=== PATIENT | male | born 1950 | race Caucasian/White ===

== ENCOUNTER → 2024-06-16 | Outpatient (CLI) | payer OTHER, SELFPAY ==
--- NOTE | 2024-06-16 09:30 | XR_ITS ---
Examination: Testicular sonography complete TECHNIQUE: Multiple high resolution grayscale sonographic images testes, assessment arterial inflow venous outflow Doppler spectral analysis carful analysis Exam date and time: June 16, 2024 0940 hours INDICATIONS: Onset scrotal swelling beginning 4 weeks ago FINDINGS: Right testis 4.0 x 2.5 x 3.5 cm Epididymis 25 mm Epididymal cysts, 5 mm, 4 mm Arterial flow testicle. No testicular mass Moderate hydrocele Left testis 4.7 x 2.7 x 3.1 cm Epididymis 12 mm Arterial flow testicle. No testicular mass IMPRESSION: No testicular torsion or testicular mass Suspicious for bilateral epididymitis Moderate right hydrocele
== END | disposition home or self-care (01) ==
PROVIDERS: PCP Family Medicine; Referring Provider Internal Medicine; Visit Provider Internal Medicine
DX: N43.3 Hydrocele, unspecified (principal)
CPT/HCPCS: 76870

== ENCOUNTER → 2024-06-16 | Outpatient (CLI) | payer OTHER, SELFPAY ==
[2024-06-16 16:03] LABS: Collection Type, Urine Clean Catch; Squamous Epithelial Cell,Urine 0 /hpf (0-5)
[2024-06-16 16:52] LABS: Basophils % (Auto) 0 % (0-2.5); Eosinophils # (Auto) 0.2 Thou/mm3 (0.0-0.5); Eosinophils % (Auto) 3 % (0-10); Hematocrit 49.8 % (41.0-53.0); Hemoglobin 16.5 g/dL (13.5-16.0); Immature Granulocytes % (Auto) 0 % (0-0); Immature Granulocytes Auto 0.04 Thou/mm3 (0.00-0.00); Lymphocytes # (Auto) 2.2 Thou/mm3 (1.0-4.8); Lymphocytes % (Auto) 23 % (10-50); Mean Corpuscular HGB Conc 33.1 g/dl (31.0-37.0); Mean Corpuscular Hemoglobin 29.9 pg (25.0-35.0); Mean Corpuscular Volume 90 fL (80-100); Monocytes # (Auto) 0.8 Thou/mm3 (0.0-0.8); Monocytes % (Auto) 8 % (0-12); Neutrophils # (Auto) 6.3 Thou/mm3 (1.8-7.7); Neutrophils % (Auto) 66 % (37-80); Nucleated Red Blood Cell % 0 /100 WBC (0); Platelet Count 279 Thou/mm3 (140-440); Red Blood Count 5.51 Miln/mm3 (4.50-5.90); White Blood Count 9.6 Thou/mm3 (3.8-10.6)
[2024-06-16 16:59] LABS: Bilirubin,Urine Negative (Negative); Blood,Urine Negative (Negative); Clarity,Urine Clear (Clear/Hazy); Color,Urine Colorless (Lt Yel-Yel); Culture Indicated,Urine Not Indicated; Glucose, Urine Negative (Negative); Ketones,Urine Negative (Negative); Leukocyte Esterase,Urine Negative (Negative); Nitrite,Urine Negative (Negative); PH,Urine 6.5 (5.0-7.0); Protein,Urine Negative (Neg - Trace); RBC,Urine 1 /hpf (0-3); Specific Gravity,Urine 1.008 (1.001-1.035); Urobilinogen,Urine Negative mg/dL (0.0-1.0); WBC,Urine < 1 /hpf (0-5)
[2024-06-16 17:09] LABS: Alanine Aminotransferase 18 U/L (10-49); Albumin, Serum 4.4 gm/dL (3.4-4.8); Albumin/Globulin Ratio 1.6 (1.2-2.2); Alkaline Phosphatase 84 U/L (46-116); Anion Gap 7 (7-16); Aspartate Amino Transferase 21 U/L (0-34); BUN/Creatinine Ratio 14 Ratio (12-20); Bilirubin,Total 0.9 mg/dL (0.3-1.2); Blood Urea Nitrogen 19 mg/dL (9-23); Calcium 10.2 mg/dL (8.3-10.6); Calcium (Corrected) 10.2 mg/dL (8.5-10.1); Carbon Dioxide 32.4 mMol/L (20.0-31.0); Chloride 100 mMol/L (98-107); Creatinine (Component) 1.4 mg/dL (0.6-1.3); Globulin 2.7 gm/dL (2.3-3.5); Glucose 81 mg/dL (74-106); Osmolality,Calculated 278 (275-295); Potassium 3.7 mMol/L (3.4-5.1); Sodium 139 mMol/L (136-145); Total Protein 7.1 gm/dL (5.7-8.2); eGFR 54 See Note
== END | disposition home or self-care (01) ==
LOC: COPL 15:23
PROVIDERS: PCP Internal Medicine; Referring Provider Internal Medicine; Visit Provider Internal Medicine
DX: N45.1 Epididymitis (principal)
CPT/HCPCS: 36415; 80053; 81001; 85025

== ENCOUNTER → 2024-08-04 | Outpatient (CLI) | payer OTHER, SELFPAY ==
[2024-08-04 12:13] LABS: Basophils % (Auto) 0 % (0-2.5); Eosinophils # (Auto) 0.3 Thou/mm3 (0.0-0.5); Eosinophils % (Auto) 3 % (0-10); Hematocrit 50.2 % (41.0-53.0); Immature Granulocytes % (Auto) 0 % (0-0); Immature Granulocytes Auto 0.03 Thou/mm3 (0.00-0.00); Lymphocytes # (Auto) 2.4 Thou/mm3 (1.0-4.8); Lymphocytes % (Auto) 25 % (10-50); Mean Corpuscular HGB Conc 33.9 g/dl (31.0-37.0); Mean Corpuscular Hemoglobin 29.8 pg (25.0-35.0); Mean Corpuscular Volume 88 fL (80-100); Monocytes # (Auto) 0.7 Thou/mm3 (0.0-0.8); Monocytes % (Auto) 7 % (0-12); Neutrophils # (Auto) 6.2 Thou/mm3 (1.8-7.7); Neutrophils % (Auto) 64 % (37-80); Nucleated Red Blood Cell % 0 /100 WBC (0); Platelet Count 276 Thou/mm3 (140-440); RDW Standard Deviation 44.6 fL (35.1-43.9); White Blood Count 9.6 Thou/mm3 (3.8-10.6)
[2024-08-04 12:32] LABS: PSA Medicare Annual Scrn 4.89 ng/mL (0-4.00); T4 (Thyroxine) 7.7 mcg/dL (4.5-10.9)
[2024-08-04 12:36] LABS: Alanine Aminotransferase 19 U/L (10-49); Albumin, Serum 4.6 gm/dL (3.4-4.8); Albumin/Globulin Ratio 1.5 (1.2-2.2); Alkaline Phosphatase 88 U/L (46-116); Anion Gap 11 (7-16); Aspartate Amino Transferase 21 U/L (0-34); BUN/Creatinine Ratio 17 Ratio (12-20); Bilirubin,Total 1.1 mg/dL (0.3-1.2); Blood Urea Nitrogen 22 mg/dL (9-23); Calcium 10.1 mg/dL (8.3-10.6); Calcium (Corrected) 10.1 mg/dL (8.5-10.1); Carbon Dioxide 28.5 mMol/L (20.0-31.0); Cardiac Risk Estimate 6.9 RATIO (4.0-6.7); Chloride 101 mMol/L (98-107); Cholesterol 233 mg/dL (132-200); Creatinine (Component) 1.3 mg/dL (0.6-1.3); Glucose 86 mg/dL (74-106); HDL Cholesterol 34 mg/dL (40-60); LDL Cholesterol,Calculated 164 mg/dL (0-130); Osmolality,Calculated 281 (275-295); Potassium 3.9 mMol/L (3.4-5.1); Sodium 140 mMol/L (136-145); Thyroid Stimulating Hormone 2.15 uIU/mL (0.55-4.78); Total Protein 7.6 gm/dL (5.7-8.2); Triglycerides 175 mg/dL (30-150); eGFR 59 See Note
[2024-08-04 12:38] LABS: B-Type Natriuretic Peptide 29 pg/mL (0-100)
[2024-08-04 14:26] LABS: Creatinine MALB Rnd Ur 193 mg/dL (30-125); Microalbumin Creat Ratio 60 mg/gCrea (<30); Microalbumin, Random Urine 116 mg/L (0-300)
[2024-08-10 07:02] LABS: Vitamin D,1,25 (OH)2,Total 17 pg/mL (18-72); Vitamin D2, 1,25 (OH)2 <8 pg/mL; Vitamin D3, 1,25 (OH)2 17 pg/mL
== END | disposition home or self-care (01) ==
PROVIDERS: PCP Nurse Practitioner Family; Referring Provider Nurse Practitioner Family; Visit Provider Nurse Practitioner Family
DX: I10 Essential (primary) hypertension (principal); R53.83 Other fatigue; Z12.5 Encounter for screening for malignant neoplasm of prostate; Z79.899 Other long term (current) drug therapy; R79.9 Abnormal finding of blood chemistry, unspecified
CPT/HCPCS: 36415; 80053; 80061; 82043; 82570; 82652; 83880; 84153; 84436; 84443; 85025; G0103

== ENCOUNTER → 2024-08-09 | Outpatient (CLI) | payer OTHER, SELFPAY ==
[2024-08-13 06:46] LABS: Fecal Globin Result NOT DETECTED (NOT DETECTED)
== END | disposition home or self-care (01) ==
PROVIDERS: PCP Nurse Practitioner Family; Referring Provider Nurse Practitioner Family; Visit Provider Nurse Practitioner Family
DX: Z12.11 Encounter for screening for malignant neoplasm of colon (principal)
CPT/HCPCS: 82274; G0328

== ENCOUNTER → 2024-08-31 | Outpatient (CLI) | payer OTHER, SELFPAY ==
--- NOTE | 2024-08-31 15:00 | XR_ITS ---
Examination: MRI brain without intravenous contrast. Date and time of exam: August 31, 2024 1614 hours INDICATIONS: Diagnosis transient global amnesia, dizziness increasing memory loss and unsteady gait 6 months Technique: Multiple axial and sagittal images of the brain obtained. Siemens high-resolution 1.5 Adilene short bore scanners utilized. Sagittal sections, T1-weighted, TR 500, TE 14, are performed. Axial sections proton-density and T2-weighted have been obtained. Inversion recovery axial images, TR 9, 260, TE 111, TI 2500. Diffusion weighted images, axial sections, TR 4800, TE 128, B value 1000 Axial sections, ADC map, TR 4800, TE 128 Findings: Enlargement of the sella turcica is not present. The optic chiasm and infundibular are not remarkable. Prepontine and interpeduncular cisterns are not enlarged. There is no localized enlargement of the medulla or janis. Fourth ventricle and cerebellar tonsils appear normal in position. No subacute area of hemorrhage density is seen. Mass in the cerebellopontine angle region is not evident. Globes symmetrical. Orbital musculature including medial lateral rectus muscles do not exhibit abnormality. Diffusion-weighted images demonstrate no focus of restricted diffusion. Increased white matter signal prominent Mass effect upon the ventricular system is not identified. Impression: Negative for acute hemorrhage mass effect or midline shift No acute infarct Prominent chronic microvascular white matter change
== END | disposition home or self-care (01) ==
LOC: SMRI 14:54
PROVIDERS: PCP Nurse Practitioner Family; Referring Provider Nurse Practitioner Family; Visit Provider Nurse Practitioner Family
DX: R90.82 White matter disease, unspecified (principal)
CPT/HCPCS: 70551

== ENCOUNTER 2024-11-04 13:54 | Outpatient (AMB) | payer OTHER, SELFPAY ==
[2024-11-04 14:06] VITALS: BP 133/85; PULSE 100; RESP 20; TEMP 36.5; O2SAT 93; BMI 46.0
--- NOTE | 2024-11-04 14:06 | ORTHONT_ITS ---
Vital signs 11/04/24 14:06 Height 1.63 m Height Method Stated Weight 122.243 kg Weight Measurement Method Standing Scale BMI 46.0 BP 133/85 H Blood Pressure Source Automatic Cuff Blood Pressure Location Right Upper Arm Position Sitting Respiration 20 Pulse 100 Pulse Source Monitor Temp 97.7 F Temp Source Temporal Artery Scan Pulse Oximetry (%) 93 L Oxygen Delivery Method Room Air Med/Allergies Allergies & Medications Allergies Penicillins Allergy (Mild, Verified 11/04/24 14:07) RASH ERYTHROMYCIN Allergy (Intermediate, Uncoded 11/04/24 14:07) Swelling around lips/mouth Medication Reconciliation hydrochlorothiazide 25 mg tablet 1 tab PO QDAY ##90 05/26/17 [History Confirmed 11/04/24] omeprazole 40 mg capsule,delayed release 40 mg PO QDAY 02/12/19 [History Confirmed 11/04/24] clotrimazole 1 % topical cream 1 applic topical 01/09/21 [History Confirmed 11/04/24] fluticasone propionate 44 mcg/actuation HFA aerosol inhaler (Flovent HFA) 1 puff inhalation 01/09/21 [History Confirmed 11/04/24] tamsulosin 0.4 mg capsule 0.4 mg PO 01/09/21 [History Confirmed 11/04/24] telmisartan 80 mg tablet 80 mg PO QDAY 01/09/21 [History Confirmed 11/04/24] telmisartan 80 mg tablet mg 01/09/21 [History Confirmed 11/04/24] Exam Exam Patient is in no acute distress and is cooperative with the examination today. Breathing is nonlabored. In no respiratory distress. Bilateral extremities were evaluated and demonstrates sensation intact to light touch. Palpable pedal pulses are present. No significant edema is present. Bilateral hips were examined. The patient has no pain with log roll of the hips. Internal rotation to 30 degrees and external rotation to 30 degrees is painless. Negative FADIR. The left knee was examined. The left knee is in varus alignment. Range of motion from 0-115 degrees. Knee is stable to varus and valgus as well as AP translation with <5mm. Patient has a negative McMurrays. There is no pain with p atellofemoral compression and no crepitus noted. The knee is tender to palpation medially. The right knee was also examined. The right knee is in varus alignment. Range of motion from 0-120 degrees. Knee is stable to varus and valgus as well as AP translation with <5mm. Patient has a negative McMurrays. There is no pain with patellofemoral compression and no crepitus noted. The knee is tender to p alpation medially. X-rays of the left knee demonstrate osteophytes. There is severe joint space narrowing medially. Assessment and Plan Problem List (1) Bilateral knee pain: Status: Acute Plan: Patient is a 73-year-old male with bilateral knee arthritis with significant severity. He Has done well with cortisone injections in the past and would like new injections today Recommend knee cortisone injections as patient would like to proceed with conservative treatment at this time. The risks and benefits of the procedure were reviewed with the patient and patient gave verbal consent to continue with the procedure. Procedure: performed by Dr. Contreras Using sterile technique the Bilateral knees were thoroughly prepped with alcohol, and approximately 1 cc of Kenalog 40 mg/mL and 4 cc of 1% lidocaine was injected into each knee without resistance into the medial tibial femoral joint space. The patient tolerated the procedure. (2) Bilateral primary osteoarthritis of knee: Status: Acute Advanced Care Planning Discussion Advance care planning discussed with:: patient Office Procedures GNS Level of Care Nursing/Assessment Patient Status: Established Patient Nursing Assessment/Reassesment: Medication Reconciliation, Update PMH in EMR and Vital Signs Coordination of Care: Complex Care and Chronic Disease 1-5, Education Complex Pt/Fam, Consent,records obtained, informed consent, Results/Orders obtained and Staff clarify orders Established Patient Charge Established Patient Point Assignment: 95 Established Patient Point Charge: EP Level 3 (80-115) Surgical Proc/IM SQ injection Major Surgical Procedure: Yes (BILATERAL KNEE INJECTIONS ) Medication Given Medication Given Medication Given: Yes Documented Dose Given: 8 Route: Infiitration Medication Given Medication Given Medication Given: Yes Documented Dose Given: 8 Route: Infiitration Office Meds Xylocaine 10 mg/mL (1 %) injection solution Performing Provider: Darren Contreras MD Performing Location: [facility] Administered by: Darren Contreras MD on 11/04/24 15:08 Dose Route Admin Location Dispensed Lot Number Expiration Date [facility] Edi Analyst 40 mL Infiltration 40 mL [id number] [facility] triamcinolone acetonide 40 mg/mL suspension for injection Performing Provider: Darren Contreras MD Performing Location: [facility] Administered by: Darren Contreras MD on 11/04/24 15:08 Dose Route Admin Location Dispensed Lot Number Expiration Date [facility] Edi Analyst 80 mg intra-articular 2 mL [id number] TEV A [facility] Intake Visit Data Collection New Patient or Established: Established Patient (seen at [facility] within 3 years) Reason for Visit:: BILATERAL KNEE INJECTIONS Seen by Clinical Staff ONLY (RN/MA): No Verbal consent obtained for Telemed visit?: No Deliverer Outside Required: No PCP or OBGYN visit in last 3 months: Yes Hx Now: No Do You Feel Safe at Home: Yes Authorities Contacted: N/A Questionairres Past Medical History Past Medical History Have you ever been diagnosed with any of the following: Neurological Problems Seizures: No Cardiology Problems Hypercholesterolemia: Yes Congestive Heart Failure: No Hypertension: Yes Respiratory Problems Chronic Obstructive Pulmonary Disease (COPD): No Asthma: No Sleep Apnea: Yes Stomache/Intestinal Problems Gastroesophageal Reflux Disease: Yes Genital/Urinary Problems Renal Disease: No Kidney Stones: Yes Musculoskeletal Problems Carpal Tunnel Syndrome: Yes Fractures: Yes Head,Eye,Nose,Throat Problems Chronic Ear Infections: Yes Endocrine Problems Diabetes Mellitus Type 1: No Diabetes Mellitus Type 2: No Blood Problems Sickle Cell Disease: No Other Problems Blood Transfusions: No Blood Transfusion Reaction: No Anesthesia Reactions: No Chicken Pox: Yes Measles: Yes Mumps: Yes Subjective Visit Visit for: follow up visit, knee and injections Immunization / Flu Flu Vaccine in the Last 12 Months: No Flu Vaccine Exclusion Criteria: No Exclusion Criteria History of Present Illness Chief complaint: bilateral knee pain Patient is a 72-year-old male with bilateral knee pain worse on the left slightly. This been ongoing for several years. He has not really had any treatment. He has tried Aleve and anti-inflammatories or physical therapy. He reports is very difficult to climb stairs and do ladders. He has done well with the prior injections Pain Pain level (0-10): 3 Pain duration: ALL DAY Pain location: inside (medial), outside (lateral) and anterior Pain quality: dull and aching Pain timing: increases with activity Associated signs & symptoms: none Ambulatory data Ambulatory device: none Treatments Number of previous injections: 2 Improvement with previous injections: Yes Improvement with PT: No Improvement with NSAIDS: no Review of Systems Review of Systems: All systems negative unless otherwise noted in HPI.
== END 2024-11-04 14:17 | disposition home or self-care (01) ==
LOC: HODSRG 13:54
PROVIDERS: PCP Nurse Practitioner Family; Referring Provider Nurse Practitioner Family; Supervising Provider Orthopaedic Surgery Adult Reconstructive Orthopaedic Surgery; Visit Provider Orthopaedic Surgery Adult Reconstructive Orthopaedic Surgery
DX: M25.562 Pain in left knee (principal); M25.561 Pain in right knee; M17.0 Bilateral primary osteoarthritis of knee; I10 Essential (primary) hypertension; E78.00 Pure hypercholesterolemia, unspecified; G47.30 Sleep apnea, unspecified
CPT/HCPCS: 20610; 99213; J3301; J3490; G0463

== ENCOUNTER → 2024-12-30 | Outpatient (BNVA) | payer OTHER, SELFPAY | END | disposition home or self-care (01) | PROVIDERS: PCP Internal Medicine; Referring Provider Internal Medicine; Visit Provider Urology | DX: N40.1 Benign prostatic hyperplasia with lower urinary tract symptoms (principal); N13.8 Other obstructive and reflux uropathy; R35.0 Frequency of micturition; R39.198 Other difficulties with micturition; R97.20 Elevated prostate specific antigen [PSA]; N43.3 Hydrocele, unspecified; E66.9 Obesity, unspecified; Z68.42 Body mass index [BMI] 45.0-49.9, adult; E78.00 Pure hypercholesterolemia, unspecified; K21.9 Gastro-esophageal reflux disease without esophagitis | CPT/HCPCS: 81003; 99203; G0463 ==

== ENCOUNTER 2025-01-26 17:26 | Emergency (ER) | payer OTHER, SELFPAY ==
--- NOTE | 2025-01-26 17:33 | EKG_ITS ---
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1950 Requested By: Noel Tabares (JUNIOR) Order Number: [id number] Reading MD: Noel Tabares (MEETING PLANNER) Measurements Intervals [place] Rate: 74 P: ND: QRS: -28 QRSD: 92 T: 17 QT: 382 QTc: 426 Interpretive Statements ATRIAL FIBRILLATION LOW QRS VOLTAGE IN PRECORDIAL LEADS [QRS DEFLECTION < 1.0 mV IN CHEST LEADS] POSSIBLE ANTERIOR MYOCARDIAL INFARCTION , PROBABLY OLD [30 ms Q WAVE IN V3/V4, OR R < 0.2 mV IN V4] Compared to ECG 11/04/2022 11:12:36 Low QRS voltage now present Ventricular premature complex(es) no longer present Aberrant conduction of supraventricular beat(s) no longer present Myocardial infarct finding still present /store/S0/[id number]/[id number].pdf
[2025-01-26 17:34] VITALS: BP 133/90; PULSE 100; RESP 20; TEMP 36.9; O2SAT 96; BMI 43.2
--- NOTE | 2025-01-26 17:40 | XR_ITS ---
Examination: PA lateral chest 2 views TECHNIQUE: Upright PA lateral chest 2 views Date and time: January 26, 2025 1757 hours Comparison 03/25/2023 INDICATIONS: Chest pain shortness of breath today. FINDINGS: Mild accentuation of basilar bronchovascular markings. No significant cardiac enlargement. Ectatic thoracic aorta. Surgical clips in the right axilla IMPRESSION: Mild bronchitis pattern
--- NOTE | 2025-01-26 17:41 | PD.EDRME ---
Rapid Medical Screening Exam RME Arrival date/time: 01/26/25 17:26 74-year-old male presents to the emergency department today for concerns for shortness of breath and chest pain Chief Complaint: Chest Pain Time Seen by Provider: 01/26/25 17:33 Vital signs: Vital Signs Temperature 98.4 F 01/26/25 17:34 Pulse Rate 100 01/26/25 17:34 Respiratory Rate 20 01/26/25 17:34 Blood Pressure 133/90 H 01/26/25 17:34 Pulse Oximetry (%) 96 01/26/25 17:34 Oxygen Delivery Method Room Air 01/26/25 17:34
[2025-01-26 18:00] LABS: Basophils # (Auto) 0.1 Thou/mm3 (0.0-0.2); Basophils % (Auto) 0 % (0-2.5); Eosinophils # (Auto) 0.3 Thou/mm3 (0.0-0.5); Eosinophils % (Auto) 2 % (0-10); Hematocrit 48.3 % (41.0-53.0); Hemoglobin 16.5 g/dL (13.5-16.0); Immature Granulocytes Auto 0.05 Thou/mm3 (0.00-0.00); Lymphocytes # (Auto) 2.9 Thou/mm3 (1.0-4.8); Lymphocytes % (Auto) 23 % (10-50); Mean Corpuscular HGB Conc 34.2 g/dl (31.0-37.0); Mean Corpuscular Hemoglobin 30.1 pg (25.0-35.0); Mean Corpuscular Volume 88 fL (80-100); Monocytes # (Auto) 0.9 Thou/mm3 (0.0-0.8); Monocytes % (Auto) 7 % (0-12); Neutrophils # (Auto) 8.4 Thou/mm3 (1.8-7.7); Neutrophils % (Auto) 67 % (37-80); Nucleated Red Blood Cell # 0.00 Thou/mm3 (0.00-0.00); Nucleated Red Blood Cell % 0 /100 WBC (0); Platelet Count 229 Thou/mm3 (140-440); RDW Standard Deviation 46.4 fL (35.1-43.9); Red Blood Count 5.48 Miln/mm3 (4.50-5.90); White Blood Count 12.6 Thou/mm3 (3.8-10.6)
[2025-01-26 18:33] LABS: B-Type Natriuretic Peptide < 20 pg/mL (0-100)
[2025-01-26 18:35] LABS: Alanine Aminotransferase 12 U/L (10-49); Albumin, Serum 4.4 gm/dL (3.4-4.8); Albumin/Globulin Ratio 1.6 (1.2-2.2); Alkaline Phosphatase 88 U/L (46-116); Anion Gap 11 (7-16); Aspartate Amino Transferase 17 U/L (0-34); BUN/Creatinine Ratio 13 Ratio (12-20); Bilirubin,Total 0.9 mg/dL (0.3-1.2); Blood Urea Nitrogen 18 mg/dL (9-23); Calcium 10.1 mg/dL (8.3-10.6); Calcium (Corrected) 10.1 mg/dL (8.5-10.1); Carbon Dioxide 26.5 mMol/L (20.0-31.0); Chloride 104 mMol/L (98-107); Creatinine (Component) 1.4 mg/dL (0.6-1.3); Estimated Creatinine Clearance 56.7 mL/min (>60); Globulin 2.8 gm/dL (2.3-3.5); Glucose 83 mg/dL (74-106); Magnesium 1.8 mg/dL (1.6-2.6); Osmolality,Calculated 282 (275-295); Potassium 3.2 mMol/L (3.4-5.1); Sodium 141 mMol/L (136-145); Total Protein 7.2 gm/dL (5.7-8.2); Troponin I 0.021 ng/mL (0.0-0.045); eGFR 53 See Note
[2025-01-26 18:36] LABS: INR 1.0 (0.9-1.3); Partial Thromboplastin Time 29.2 Seconds (22.0-36.0); Prothrombin Time 11.4 Seconds (9.0-12.2)
--- NOTE | 2025-01-26 22:35 | PD.EDCHEST ---
ED Chest Pain RME/HPI General Chief Complaint: Chest Pain Stated Complaint: CHEST PAIN W/ SOB; PRIMARY SENT FOR A-FIB Time Seen by Provider: 01/26/25 17:33 Arrival date/time: 01/26/25 17:26 RME / HPI RME / HPI narrative: 01/26/25 17:26 74-year-old male presents to the emergency department today for concerns for shortness of breath and chest pain -------- This section includes all my notes and documentations, including HPI, PE, and ED course. Carl Abraham MD HPI: 74yo male here with intermittent chest pain x 3 weeks. Reports chest/epigastric pain. Can have multiple episodes per day. Each episode can last few seconds to 30 minutes or more. He has trouble describing the quality and quantity of the pain. Uncertain of exacerbating factors or relieving factors. No other complaints. ROS: All negative except as documented in HPI. Physical Exam: General: Alert and oriented. Noted intermittent attacks of severe pain, holding his chest. Eyes: Conjunctivae and lids clear. ENT: No nasal congestion. Neck: Supple. Heart: RRR. Lungs: No respiratory distress. Good air movement. No rhonchi, wheezing, rales. Abdomen: Soft and epigastric tenderness. Normal bowel sounds. No distension. No rebound or guarding. Back: No CVA tenderness. Skin: Warm and dry. Neuro: Alert and oriented X 3. I reviewed all diagnostic test results. My interpretation of the EKG is atrial fibrillation (74 bpm). My interpretation of the chest x-ray is no acute findings. My review of the gallbladder US report is cholelithiasis. My review of the CT angio chest report is NAD. My review of the CT abdomen pelvis report is NAD. Blood tests remarkable for WBC 12.6, Potassium 3.2. Urine tests unremarkable. At this point, diagnoses include gallstones. Treatment here included Potassium, Protonix, Morphine, Zofran, and Pepcid. Significant improvement noted. Recommended outpatient management. Based on my best medical judgment, made decision no further evaluation or treatment indicated at this time. Patient understands and agrees to the discharge instructions customized and printed, see below. Discharge Instructions from Dr. Abraham: 1. After evaluation, your symptoms are due to gallstone(s). You need gallbladder to help digest fatty foods. 2. So to prevent future attacks, avoid all fatty and oily and greasy and buttery and dairy foods. This usually means take out and fast food restaurants. 3. Zofran for nausea/vomiting. Tylenol with codeine for severe pain. Clear liquid diet for 24 hours then advance diet slowly as tolerated. Augmentin to address your infection. 4. See a private doctor on 01/28/2025 for recheck and further care. Ask to review all test results and official radiology reports, to make sure you receive all necessary follow-ups and monitoring. Ask for help seeing a general surgeon to discuss elective surgery. 5. Seek immediate medical care with intolerable pain, fever, or with any concerns. Carl Abraham MD Related Data Home Medications ?Medication ?Instructions ?Recorded ?Confirmed fluticasone propionate 44 1 puff inhalation 01/09/21 12/30/24 mcg/actuation HFA aerosol inhaler (Flovent HFA) tamsulosin 0.4 mg capsule 0.4 mg PO 01/09/21 12/30/24 Previous Rx's ?Medication ?Instructions ?Recorded acetaminophen 300 mg-codeine 30 mg 2 tab PO Q8H PRN pain #20 tabs 01/27/25 tablet amoxicillin 875 mg-potassium 1 tab PO BID #20 tabs 01/27/25 clavulanate 125 mg tablet ondansetron 4 mg disintegrating 4 mg PO TID PRN nausea and 01/27/25 tablet vomiting 30 days #10 tabs Allergies Allergy/AdvReac Type Severity Reaction Status Date / Time Penicillins Allergy Mild RASH Verified 01/26/25 17:29 ERYTHROMYCIN Allergy Intermediate Swelling Uncoded 01/26/25 17:29 around lips/mouth Review of Systems Review of Systems Systems Reviewed: All systems reviewed, normal except as documented Past Medical History Past Medical History NEUROLOGIC: Negative Seizures CARDIAC: Positive Hypercholesterolemia and Hypertension; Negative Cardiac Disorders or Congestive Heart Failure RESPIRATORY: Positive Sleep Apnea; Negative Chronic Obstructive Pulmonary Disease (COPD) or Asthma GASTROINTESTINAL: Positive Gastrointestinal Disorders and Gastroesophageal Reflux Disease GENITOURINARY: Positive Genitourinary Disorders and Kidney Stones; Negative Renal Disease MUSCULOSKELETAL: Positive Carpal Tunnel Syndrome and Fractures ENT: Positive Ear Infection ENDOCRINE: Negative Diabetes Mellitus Type 1 or Diabetes Mellitus Type 2 HEMATOLOGIC: Negative Sickle Cell Disease OTHER HISTORY: Positive Chicken Pox, Measles and Mumps; Negative Blood Transfusions, Blood Transfusion Reaction or Anesthesia Reactions Family History FAMILY HISTORY: Positive Family Respiratory Disorders, Family Cardiac Disorders and Family Surgery Surgical History SURGICAL: Positive Ear Surgery Social History SMOKING STATUS: Never smoker SUBSTANCE USE: does not use ED Exam Narrative Physical exam: As noted in HPI. Course Course Course Narrative: CXR is ordered for determining the etiology of chest pain. Quality Measures none Orders Category Date Time Status Bedside COVID-19 Antigen Test NOW Care 01/26/25 23:13 Completed Bedside Influenza A&B Antigen Test NOW Care 01/26/25 23:[address] Screening NOW Care 01/26/25 23:16 Completed EKG (ED ONLY) *Do not use* NOW Care 01/26/25 17:33 Completed Saline [Insert IV] NOW Care 01/26/25 23:13 Completed Straight [In and Out Catheter] X1 Care 01/26/25 23:[address] abdomen pelvis w con Stat Exams 01/26/25 23:[address] angio chest Stat Exams 01/26/25 23:16 Taken EKG (ED Only) Stat Exams 01/26/25 17:33 Draft US gall bladder Stat Exams 01/27/25 00:00 Taken XR chest 2V Stat Exams 01/26/25 17:40 Completed Amylase Stat Lab 01/26/25 23:35 Completed B-Type Natriuretic Peptide Stat Lab 01/26/25 17:48 Completed Bilirubin,Direct Stat Lab 01/26/25 23:35 Completed CBC Stat Lab 01/26/25 17:48 Completed Comprehensive Metabolic Panel Stat Lab 01/26/25 17:48 Completed D-Dimer Stat Lab 01/26/25 23:35 Completed Free T4 (Free Thyroxine) Stat Lab 01/26/25 23:35 Completed Magnesium Stat Lab 01/26/25 17:48 Completed Partial Thromboplastin Time Stat Lab 01/26/25 17:48 Completed Prothrombin Time with INR Stat Lab 01/26/25 17:48 Completed TSH [Thyroid Stimulating Hormone] Stat Lab 01/26/25 23:35 Completed Troponin I Stat Lab 01/26/25 17:48 Completed Troponin I Stat Lab 01/26/25 23:35 Completed UA, C/S IF [Urinalysis, C/S if Indicated] Stat Lab 01/26/25 23:19 Completed Famotidine Inj [Pepcid Inj] Med 01/26/25 23:15 Discontinued 20 mg IVP X1 ONE KCL 10% Liq UDC 15 ML Med 01/26/25 22:37 Discontinued 40 meq PO X1 ONE Morphine Inj Med 01/26/25 23:15 Discontinued 4 mg IVP X1 ONE Ondansetron Inj [Zofran Inj] Med 01/26/25 23:15 Discontinued 4 mg IVP X1 ONE Pantoprazole Inj [Protonix Inj] Med 01/26/25 23:15 Discontinued 40 mg IVP X1 ONE Ringers Lactated 1000 ml [Lactated Ringers] 1,000 ml Med 01/26/25 23:15 Discontinued IV 1,000 mls/hr Vital Signs Vital signs: Vital Signs Temperature 98.4 F 01/26/25 17:34 Pulse Rate 100 01/26/25 17:34 Respiratory Rate 20 01/26/25 17:34 Blood Pressure 133/90 H 01/26/25 17:34 Pulse Oximetry (%) 96 01/26/25 17:34 Oxygen Delivery Method Room Air 01/26/25 17:34 Chest Pain MDM Narrative MDM Narrative:: 74yo male here with intermittent chest pain x 3 weeks. Reports chest/epigastric pain. Can have multiple episodes per day. Each episode can last few seconds to 30 minutes or more. He has trouble describing the quality and quantity of the pain. Uncertain of exacerbating factors or relieving factors. No other complaints. Patient data External records reviewed:: [facility] previous records (Per chart review, patient was seen here on 10/15/22 for acute chest wall pain.) Clinical information provided by:: patient Social determinants that could affect healthcare access:: none Patient has the following chronic illnesses:: HTN, HLD How is presenting disease/condition affected by chronic disease/condition?: uneffected by Evaluation data The following diagnostics were reviewed and interpreted by me:: lab results and radiology exam(s) Lab and/or radiology exams considered but not ordered:: none Interpretation Summary: I reviewed all diagnostic test results. My interpretation of the EKG is atrial fibrillation (74 bpm). My interpretation of the chest x-ray is no acute findings. My review of the gallbladder US report is cholelithiasis. My review of the CT angio chest report is NAD. My review of the CT abdomen pelvis report is NAD. Blood tests remarkable for WBC 12.6, Potassium 3.2. Urine tests unremarkable. Medications / Prescriptions Medications or Prescriptions considered but not ordered:: none Medication administrations:: Medication Administration History Discontinued Medications Famotidine (Famotidine Inj 10 Mg/Ml Vial 2 Ml) 20 mg IVP X1 ONE Stop: 01/26/25 23:16 Last Admin: 01/27/25 00:14 Dose: 20 mg Documented By: EE Lactated Ringer's (Lactated Ringers) 1,000 mls @ 1,000 mls/hr IV .Q1H STA Stop: 01/27/25 00:14 Last Infusion: 01/27/25 01:50 Dose: Infused Documented By: Admin: 01/27/25 00:15 Dose: 1,000 mls/hr Documented By: EE Morphine Sulfate (Morphine Sulf Inj 10 Mg/Ml Vial) 4 mg IVP X1 ONE Stop: 01/26/25 23:16 Last Admin: 01/27/25 00:13 Dose: 4 mg Documented By: EE Ondansetron HCl (Ondansetron Inj 2 Mg/Ml Inj 2 Ml) 4 mg IVP X1 ONE; Protocol Stop: 01/26/25 23:16 Last Admin: 01/27/25 00:13 Dose: 4 mg Documented By: EE Pantoprazole Sodium (Pantoprazole Inj 40 Mg Vial) 40 mg IVP X1 ONE Stop: 01/26/25 23:16 Last Admin: 01/27/25 00:14 Dose: 40 mg Documented By: EE Potassium Chloride (Potassium Chloride 10% 20 Meq/15 Ml Udc) 40 meq PO X1 ONE Stop: 01/26/25 22:38 Last Admin: 01/27/25 00:12 Dose: 40 meq Documented By: EE Potassium, Protonix, Morphine, Zofran, Pepcid Consultations Consultation(s) initiated? (list below): No Diagnosis Chest Pain Differential Diagnosis: pneumothorax, stable angina, unstable angina pectoris, atypical chest pain, st elevation myocardial infarction, costochondritis, chest pain and biliary colic Most likely diagnosis given after review of the tests above:: Gallstones Admission Indicated Admission indicated?: not indicated Explain why admission is indicated or not indicated:: With significant improvement and no condition needing emergent intervention, there was no indication for admission. Admission Request Was there a request for admission?: No Disposition Plan Disposition Plan: Discharge Discharge Attestation Discharge Attestation: The patient and all family members were given an opportunity to ask questions and understood the discharge instructions. Discharge instructions specifically effects, indications for sooner follow up or return to the emergency department, and the expected course of current diagnosis. Patient condition: Stable Discharge Plan Plan Patient Disposition: HOME (Self Care) Prescriptions/Referrals Prescriptions/Med Rec: New acetaminophen-codeine 300-30 mg tablet 2 tab PO Q8H MDD 6 PRN (Reason: pain) Qty: 20 0RF ondansetron 4 mg tablet,disintegrating 4 mg PO TID PRN (Reason: nausea and vomiting) 30 Days Qty: 10 0RF amoxicillin-pot clavulanate 875-125 mg tablet 1 tab PO BID Qty: 20 0RF No Action tamsulosin 0.4 mg capsule 0.4 mg PO Flovent HFA 44 mcg/actuation HFA aerosol inhaler 1 puff INHALATION Referrals: Black Kuo MD [Primary Care Provider] - In 1 week Problem List Clinical Impression: Gallstones Patient/Caregiver Discharge Instructions Discharge Activity: activity as tolerated Education Materials: ED Gallstones with Biliary Colic Additional Instructions: Discharge Instructions from Dr. Abraham: 1. After evaluation, your symptoms are due to gallstone(s).? You need gallbladder to help digest fatty foods. 2. So to prevent future attacks, avoid all fatty and oily and greasy and buttery and dairy foods.? This usually means take out and fast food restaurants. 3. Zofran for nausea/vomiting.? Tylenol with codeine for severe pain.? Clear liquid diet for 24 hours then advance diet slowly as tolerated. Augmentin to address your infection. 4. See a private doctor on 01/28/2025 for recheck and further care. Ask to review all test results and official radiology reports, to make sure you receive all necessary follow-ups and monitoring. Ask for help seeing a general surgeon to discuss elective surgery. 5. Seek immediate medical care with intolerable pain, fever, or with any concerns. Print Language: Estonian Stand Alone Forms: [employer] Award Info., Patient Portal Info Letter
--- NOTE | 2025-01-26 23:16 | XR_ITS ---
Examination: CTA chest with intravenous contrast 2-D reconstructions 3-D reconstructions, vascular Date and time of exam: January 27, 2025, 0100 hours Comparison November 04, 2022 INDICATIONS: Chest pain and shortness of breath beginning 4 weeks ago CTDI: vol (mGy) 13.4 DLP: (mGycm) 480 Technique: Multiple axial sections of the thorax have been obtained. 3 mm slice thickness, from below the hemidiaphragms to above the apices of the lungs. Mediastinal and lung density settings have been obtained. 2-D sagittal and coronal reconstructions. 3-D angiographic renderings, 3-D volume renderings, 3D post processing, vascular maximum intensity projections obtained. Contrast administered is 100 cc Isovue 300. Low dose protocols were performed. One or more of the following dose reduction techniques were used; automated exposure control, adjustment of the mA and/or KV according to patient size, use of iterative reconstruction technique. Findings: No thoracic aortic aneurysmal dilatation or dissection Main pulmonary artery segments are not enlarged. No pulmonary artery filling defects No paratracheal tracheobronchial or bronchopulmonary adenopathy 2 mm pulmonary nodule right middle lobe, 3 mm pulmonary nodule right lower lobe Mild vascular congestion. No lobar pneumonia or pulmonary edema No visualized liver and splenic lesions Cholelithiasis IMPRESSION: Negative for pulmonary artery emboli. No pneumonia or pulmonary edema Suggest continued 6 month follow-up CT chest without contrast to document stability of small pulmonary nodules described above Cholelithiasis
--- NOTE | 2025-01-26 23:16 | XR_ITS ---
Examination: CT abdomen with intravenous contrast CT pelvis with intravenous contrast 2-D coronal reconstructions 2-D sagittal reconstructions Date and time of exam:January 27, 2025 0100 hours INDICATIONS: Epigastric tenderness and pain beginning 4 weeks ago. CTDI: vol (mGy) 14.3. DLP: (mGycm) 914. Technique: Multiple axial sections of the abdomen and pelvis have been obtained. 64 slice high-resolution scanner used. 3 mm axial sections have been obtained, post intravenous injection 100 cc Isovue-370. 2-D sagittal, coronal reconstructions obtained. Low dose protocols were performed. One or more of the following dose reduction techniques were used; automated exposure control, adjustment of the mA and/or KV according to patient size, use of iterative reconstruction technique. Findings: No focal liver or splenic lesion Cholelithiasis No pancreatic or adrenal mass Bilateral benign renal cysts Rounded masslike area in the posterior right kidney, lower pole right kidney, axial image 103, coronal image 110, measuring 32 x 31 mm Aorta normal size No bowel obstruction No pericecal inflammatory change Prostatomegaly, AP dimension 5.8 cm Left inguinal hernia containing colon, no incarcerated bowel Impression : Cholelithiasis 32 x 31 mm masslike area in the posterior right kidney, recommend MRI abdomen kidneys follow up to exclude renal tumor No bowel obstruction. Prostatomegaly Left inguinal hernia containing colon but no incarcerated bowel or bowel obstruction
[2025-01-26 23:27] LABS: Collection Type, Urine Clean Catch; Squamous Epithelial Cell,Urine 0 /hpf (0-5)
[2025-01-26 23:47] LABS: Bilirubin,Urine Negative (Negative); Blood,Urine Negative (Negative); Clarity,Urine Clear (Clear/Hazy); Color,Urine Yellow (Lt Yel-Yel); Culture Indicated,Urine Not Indicated; Glucose, Urine Negative (Negative); Ketones,Urine Negative (Negative); Leukocyte Esterase,Urine Negative (Negative); Nitrite,Urine Negative (Negative); PH,Urine 5.5 (5.0-7.0); Protein,Urine Trace (Neg - Trace); RBC,Urine 7 /hpf (0-3); Urobilinogen,Urine Negative mg/dL (0.0-1.0); WBC,Urine 1 /hpf (0-5)
[2025-01-26 23:49] LABS: Specific Gravity,Urine 1.025 (1.001-1.035)
--- NOTE | 2025-01-27 | XR_ITS ---
Examination: Abdomen sonogram, Limited Date and time of exam: January 27, 2025 0019 hours INDICATIONS: Epigastric pain and nausea beginning 3 days ago. Technique: Real-time payan scale transabdominal sonographic images of the upper abdomen obtained. Findings: Gallstones. Gallbladder sludge. Normal gallbladder wall 0.3 cm Normal common bile duct 0.3 cm Pancreatic head 3.7 cm Liver 24.1 cm lobular contour Normal bilateral renal venous flow Patent IVC IMPRESSION: Cholelithiasis, negative for cholecystitis Hepatomegaly, primary hepatocellular disease
[2025-01-27 00:03] LABS: Amylase 97 U/L (30-118); Bilirubin,Direct 0.3 mg/dL (0.0-0.3); Free T4 (Free Thyroxine) 1.25 ng/dL (0.89-1.76); Thyroid Stimulating Hormone 3.28 uIU/mL (0.55-4.78); Troponin I < 0.020 ng/mL (0.0-0.045)
[2025-01-27 00:07] LABS: D-Dimer < 250 ng/mL (<600)
[2025-01-27] MEDS: POTASSIUM CHLORIDE 10% 20 MEQ/15 ML UDC 40 MEQ PO (00:12)
[2025-01-27] MEDS: ONDANSETRON INJ 2 MG/ML INJ 2 ML 4 MG IVP (00:13)
[2025-01-27] MEDS: MORPHINE SULF INJ 10 MG/ML VIAL 4 MG IVP (00:13)
[2025-01-27] MEDS: FAMOTIDINE INJ 10 MG/ML VIAL 2 ML 20 MG IVP (00:14)
[2025-01-27] MEDS: RINGERS LACTATED 1000 ML 1,000 ML IV (00:15)
[2025-01-27 00:21] VITALS: BP 147/93; PULSE 74; RESP 19; TEMP 36.7; O2SAT 90
--- NOTE | 2025-01-27 01:36 | PRELIM_ITS ---
Gallbladder ultrasound. January 27, 2025 at 0019 hours Clinical history: Epigastric tenderness, pain, nausea x3 days. Findings: The liver is enlarged, measuring 24 cm and demonstrates heterogeneous and lobular contour. The main portal vein is patent and demonstrates hepatopetal flow. Echogenic foci are seen in the gallbladder with posterior shadowing, likely representing calculi, the largest measuring 2.2 x 1 x 1.1 cm. Minimal sludge is demonstrated. No gallbladder wall thickening or pericholecystic fluid is identified. The common duct is normal in caliber at 3 mm. The pancreas is unremarkable to the extent visualized. No masses are demonstrated. The inferior vena cava is patent. Impression: Cholelithiasis without evidence of acute cholecystitis or biliary obstruction. Hepatomegaly with heterogeneous and lobular contour of the liver, which may represent fatty infiltration of the liver versus diffuse hepatic parenchymal disease. Recommend clinical correlation. Report Electronically Signed By: Eliazar Espino 01/27/2025 1:35:49 AM [EST]
--- NOTE | 2025-01-27 02:15 | PRELIM_ITS ---
CT scan of the abdomen and pelvis with intravenous contrast (axial sections with sagittal and coronal reformats) January 27, 2025 0100 hours Clinical History: Epigastric tenderness Comparison: November. Findings: Bibasilar dependent atelectasis is present. Small hypodense lesions are noted in the liver, too small to characterize. There is a gallbladder calculus, without gallbladder wall thickening or pericholecystic fluid. The pancreas, spleen and adrenals are unremarkable. Small hypodense lesions are noted in the kidneys, too small to characterize similar to prior study. There are bilateral simple renal cysts, the largest measuring 6 cm in the right kidney and 5 cm in the left kidney similar to prior study. Contrast is seen in the kidneys, ureters and urinary bladder. No evidence of bowel obstruction. There are multiple colonic diverticula without evidence of diverticulitis. The appendix is not visualized. There is no mesenteric or retroperitoneal adenopathy. There is a moderate fat and sigmoid colon containing left inguinoscrotal hernia new since the prior examination. The abdominal aorta demonstrates atheromatous calcification without evidence of aneurysm. A small fat-containing umbilical hernia is present. The urinary bladder is incompletely distended at the time of the examination and appears mildly thick walled. There is mild prostatomegaly. There is no free fluid or free air. Degenerative changes are identified in the spine. Impression: 1. No evidence of bowel obstruction, free air or abscess. 2. Cholelithiasis without CT evidence of acute cholecystitis. 3. Moderate left inguinoscrotal hernia as described. 4. Apparent wall thickening of the urinary bladder and mild prostatomegaly , the possibilities include chronic outlet obstruction versus cystitis. Recommend clinical and laboratory correlation. 5. Other findings as described above. Report Electronically Signed By: Eliazar Espino 01/27/2025 2:15:06 AM [EST]
--- NOTE | 2025-01-27 02:28 | PRELIM_ITS ---
CT angiogram of the chest aorta with intravenous contrast (axial sections with sagittal and coronal reformats) January 27, 2025 0100 hours Clinical History: SOB, chest pain Comparison: No prior study is available for comparison. Findings: The evaluation of the segmental and subsegmental pulmonary artery divisions is limited due to respiratory motion artifact. No pulmonary thromboembolism in the remainder of the pulmonary artery divisions. The thoracic aorta demonstrates atheromatous calcification without evidence of aneurysm. Postoperative changes seen in the mediastinum with surgical clips .The mediastinum demonstrates no evidence of mass or lymphadenopathy. There is mild cardiomegaly. There is no pericardial effusion. Coronary artery calcification is noted. Bibasilar dependent atelectasis is present. No evidence of focal consolidation. There is a 3 mm subpleural nodule in the right lower lobe (axial image 142/218) and 2 mm in the right middle lobe (axial image 127/218). No evidence of pleural effusion or pneumothorax. Degenerative changes are identified in the spine. There are chronic deformities of the right 4th and 5th ribs anterolaterally. Impression: 1. No CT evidence of pulmonary thromboembolism (limited evaluation of the segmental and subsegmental pulmonary artery divisions due to respiratory motion artifact). Recommend additional evaluation, if clinically indicated. 2. No focal consolidation or pleural effusion. 3. Small right lung nodules as described. Recommend follow-up. 4. Other findings as described above. Please refer to CT abdomen and pelvis reported separately. Report Electronically Signed By: Eliazar Espino 01/27/2025 2:26:51 AM [EST]
[2025-01-27 02:51] VITALS: BP 142/91; PULSE 55; RESP 19; TEMP 36.9; O2SAT 94
== END 2025-01-27 02:57 | disposition home or self-care (01) ==
PROVIDERS: Nurse Practitioner Primary Care; Emergency Provider Emergency Medicine; PCP Family Medicine
DX: K80.20 Calculus of gallbladder without cholecystitis without obstruction (principal); I48.91 Unspecified atrial fibrillation; R16.0 Hepatomegaly, not elsewhere classified; R91.8 Other nonspecific abnormal finding of lung field; K40.90 Unilateral inguinal hernia, without obstruction or gangrene, not specified as recurrent
CPT/HCPCS: 36415; 36600; 71046; 71275; 74177; 76705; 80053; 81001; 82150; 82248; 82803; 83735; 83880; 84439; 84443; 84484; 85025; 85379; 85610; 85730; 87400; 87811; 93005; 96361; 96374; 96375; 99284; A4649; J2270; J2405; J2470; J3490; J7120; Q9967; A9270

== ENCOUNTER → 2025-01-31 | Outpatient (CLI) | payer OTHER, SELFPAY ==
[2025-01-31 16:16] LABS: Basophils # (Auto) 0.0 Thou/mm3 (0.0-0.2); Basophils % (Auto) 0 % (0-2.5); Eosinophils # (Auto) 0.4 Thou/mm3 (0.0-0.5); Eosinophils % (Auto) 3 % (0-10); Hematocrit 51.7 % (41.0-53.0); Hemoglobin 17.0 g/dL (13.5-16.0); Immature Granulocytes Auto 0.04 Thou/mm3 (0.00-0.00); Lymphocytes # (Auto) 2.3 Thou/mm3 (1.0-4.8); Lymphocytes % (Auto) 21 % (10-50); Mean Corpuscular HGB Conc 32.9 g/dl (31.0-37.0); Mean Corpuscular Hemoglobin 30.4 pg (25.0-35.0); Mean Corpuscular Volume 93 fL (80-100); Monocytes # (Auto) 0.7 Thou/mm3 (0.0-0.8); Monocytes % (Auto) 6 % (0-12); Neutrophils # (Auto) 7.8 Thou/mm3 (1.8-7.7); Neutrophils % (Auto) 69 % (37-80); Nucleated Red Blood Cell # 0.00 Thou/mm3 (0.00-0.00); Nucleated Red Blood Cell % 0 /100 WBC (0); Platelet Count 261 Thou/mm3 (140-440); RDW Standard Deviation 48.6 fL (35.1-43.9); Red Blood Count 5.59 Miln/mm3 (4.50-5.90); White Blood Count 11.3 Thou/mm3 (3.8-10.6)
[2025-01-31 16:26] LABS: Alanine Aminotransferase 14 U/L (10-49); Albumin, Serum 4.2 gm/dL (3.4-4.8); Albumin/Globulin Ratio 1.3 (1.2-2.2); Alkaline Phosphatase 83 U/L (46-116); Anion Gap 9 (7-16); Aspartate Amino Transferase 15 U/L (0-34); BUN/Creatinine Ratio 12 Ratio (12-20); Bilirubin,Total 0.7 mg/dL (0.3-1.2); Blood Urea Nitrogen 17 mg/dL (9-23); Calcium 9.9 mg/dL (8.3-10.6); Calcium (Corrected) 9.9 mg/dL (8.5-10.1); Carbon Dioxide 30.4 mMol/L (20.0-31.0); Chloride 102 mMol/L (98-107); Creatinine (Component) 1.4 mg/dL (0.6-1.3); Globulin 3.3 gm/dL (2.3-3.5); Glucose 96 mg/dL (74-106); Osmolality,Calculated 282 (275-295); Potassium 3.9 mMol/L (3.4-5.1); Sodium 141 mMol/L (136-145); Total Protein 7.5 gm/dL (5.7-8.2); eGFR 53 See Note
[2025-02-04 19:51] LABS: PSA, Free 1.32 ng/mL; PSA, Total 5.2 ng/mL (< OR = 4.0)
[2025-02-07 06:49] LABS: PSA, % Free 25 % (calc) (>25)
== END | disposition home or self-care (01) ==
LOC: COPL 15:26
PROVIDERS: PCP Family Medicine; Referring Provider Student in an Organized Health Care Education/Training Program; Visit Provider Student in an Organized Health Care Education/Training Program
DX: I48.91 Unspecified atrial fibrillation (principal); R97.20 Elevated prostate specific antigen [PSA]
CPT/HCPCS: 36415; 80053; 84153; 84154; 85025

== ENCOUNTER → 2025-02-02 | Outpatient (CLI) | payer OTHER, SELFPAY ==
--- NOTE | 2025-02-02 14:50 | XR_ITS ---
Examination: Abdomen sonogram, complete Date and time of exam: February 02, 2025 1505 hours INDICATIONS: Right upper abdominal pain beginning 3 months ago, worse the last 3 weeks. Technique: Multiple real-time grayscale transabdominal sonographic images of the abdomen have been obtained. Findings: Multiple gallstones Normal gallbladder wall. Normal common bile duct 0.3 cm Pancreatic head 2.9 cm Aorta not enlarged Liver 18.1 cm lobular contour 9 mm left lobe liver cyst Normal hepatopedal portal venous flow Patent IVC Right kidney 11.7 cm cortex 1.2 cm Multiple calculi, the largest in the upper pole 19 mm 17 mm lower pole cyst Left kidney 12.9 cm renal cortex 1.6 cm Upper pole cyst 47 mm lower pole cyst 24 mm, multiple calculi, the largest in the lower pole 7 mm Borderline splenomegaly IMPRESSION: Cholelithiasis, negative for cholecystitis Suspect primary hepatocellular disease, moderate hepatomegaly is present Bilateral nonobstructing renal calculi
== END | disposition home or self-care (01) ==
LOC: CDIM 14:45
PROVIDERS: PCP Internal Medicine; Referring Provider Student in an Organized Health Care Education/Training Program; Visit Provider Student in an Organized Health Care Education/Training Program
DX: K80.20 Calculus of gallbladder without cholecystitis without obstruction (principal); N20.0 Calculus of kidney
CPT/HCPCS: 76700

== ENCOUNTER 2025-03-08 07:50 | Day surgery (SDC) | payer OTHER, SELFPAY ==
[2025-03-07 10:18] VITALS: BMI 43.2
[2025-03-07 11:54] LABS: Basophils # (Auto) 0.0 Thou/mm3 (0.0-0.2); Basophils % (Auto) 0 % (0-2.5); Eosinophils # (Auto) 0.3 Thou/mm3 (0.0-0.5); Eosinophils % (Auto) 3 % (0-10); Hematocrit 51.4 % (41.0-53.0); Hemoglobin 17.4 g/dL (13.5-16.0); Immature Granulocytes Auto 0.04 Thou/mm3 (0.00-0.00); Lymphocytes # (Auto) 2.2 Thou/mm3 (1.0-4.8); Lymphocytes % (Auto) 20 % (10-50); Mean Corpuscular HGB Conc 33.9 g/dl (31.0-37.0); Mean Corpuscular Hemoglobin 30.7 pg (25.0-35.0); Mean Corpuscular Volume 91 fL (80-100); Monocytes # (Auto) 0.7 Thou/mm3 (0.0-0.8); Monocytes % (Auto) 6 % (0-12); Neutrophils # (Auto) 7.5 Thou/mm3 (1.8-7.7); Neutrophils % (Auto) 70 % (37-80); Nucleated Red Blood Cell # 0.00 Thou/mm3 (0.00-0.00); Nucleated Red Blood Cell % 0 /100 WBC (0); Platelet Count 251 Thou/mm3 (140-440); RDW Standard Deviation 46.2 fL (35.1-43.9); Red Blood Count 5.67 Miln/mm3 (4.50-5.90); White Blood Count 10.7 Thou/mm3 (3.8-10.6)
[2025-03-07 12:06] LABS: INR 1.1 (0.9-1.3); Partial Thromboplastin Time 28.2 Seconds (22.0-36.0); Prothrombin Time 11.5 Seconds (9.0-12.2)
[2025-03-07 12:13] LABS: Alanine Aminotransferase 16 U/L (10-49); Albumin, Serum 4.2 gm/dL (3.4-4.8); Albumin/Globulin Ratio 1.1 (1.2-2.2); Alkaline Phosphatase 89 U/L (46-116); Anion Gap 11 (7-16); Aspartate Amino Transferase 21 U/L (0-34); BUN/Creatinine Ratio 11 Ratio (12-20); Bilirubin,Total 1.1 mg/dL (0.3-1.2); Blood Urea Nitrogen 14 mg/dL (9-23); Calcium 10.0 mg/dL (8.3-10.6); Calcium (Corrected) 10.0 mg/dL (8.5-10.1); Carbon Dioxide 29.2 mMol/L (20.0-31.0); Chloride 101 mMol/L (98-107); Creatinine (Component) 1.3 mg/dL (0.6-1.3); Estimated Creatinine Clearance 61.1 mL/min (>60); Globulin 3.7 gm/dL (2.3-3.5); Glucose 93 mg/dL (74-106); Osmolality,Calculated 281 (275-295); Potassium 3.8 mMol/L (3.4-5.1); Sodium 141 mMol/L (136-145); Total Protein 7.9 gm/dL (5.7-8.2); eGFR 58 See Note
--- NOTE | 2025-03-07 14:45 | SUR.PREOP ---
Cardiac records and history reviewed with Dr Carbone.
[2025-03-08] VITALS (8 sets, daily range): BP systolic 136–157; BP diastolic 77–93; PULSE 57–75; RESP 14–20; TEMP 36.2–36.6; O2SAT 94–98; BMI 43.2
[2025-03-08] MEDS: RINGERS LACTATED 1000 ML 1,000 ML 20 ML IV (08:44)
[2025-03-08] MEDS: ALBUTEROL RT 2.5 MG/3 ML NEBU INH (09:55)
--- NOTE | 2025-03-08 11:32 | SUR.PHASEI ---
pt received from OR in recovery bay 5. pt asleep but responds to voice, breathing unlabored on oxymask 8l. v/s stable. pt dressing to abd x4 cdi. report received from Екатерина Arellano and Dr. Elias.
[2025-03-08] MEDS: fentaNYL CIT INJ 50 mCg/ML AMP 2ML 25 MCG IVP ×4 (11:39→12:01)
--- NOTE | 2025-03-08 11:40 | SUR.PHASEI ---
report given to Melissa OWENS at this time.
--- NOTE | 2025-03-08 11:44 | PD.SUROPNT ---
Date of Procedure 03/08/25 Pre Op Diagnosis Symptomatic cholelithiasis Post Op Diagnosis Same Procedure Laparoscopic cholecystectomy Findings Patient was found to have a noninflamed gallbladder with multiple stones Procedure Description After endotracheal anesthesia was given the patient was placed in supine position and the abdomen was prepped with chloroprep solution and draped in a sterile manner. After time out was performed I injected a few cc of of half percent Marcaine with epinephrine below the umbilicus and I made an incision for about 3 cm in length. The fascia was cleaned and Veress needle was inserted to create a pneumoperitoneum up to 15 mmHg. Then introduced a 12 mm trocar and a 10 mm camera through the fascia and I inspected the intra-abdominal organs as well as the gallbladder and the liver. Another 5 mm trocar was inserted in the epigastric region under direct vision after injecting some local anesthesia. At this time the patient was kept in reverse Trendelenburg position with the left lateral tilt. The third 5 mm trocar was inserted over the mid axillary line under direct vision and a Noah and Madyson grasper was used to hold the fundus of the gallbladder. The retraction was carried out by the medical practice assistant moving the fundus of the gallbladder towards the right shoulder of the patient to create enough traction. I placed a another 5 mm trocar in the midaxillary line just lateral to the rectus muscle under direct vision. I used a fenestrated grasper to retract the neck of the gallbladder laterally towards the patient's right hip. The Calot's triangle was exposed and I achieved the critical view of safety as follows: I dissected out the fatty tissue from the hepatocystic triangle and cleared this area. I also dissected inferior and posterior to the gallbladder to identify the cystic duct and the gallbladder wall. Then superiorly I dissected along the cystic plate up to lower one third third of the gallbladder to lift the gallbladder from the liver. At this time I confirmed that only 2 structures entering the gallbladder were cystic artery and the cystic duct. The common duct was seen distally but no dissection was carried out around the duct. I did not see any need for operative cholangiogram in this patient. The cystic duct was clipped doubly and then divided and cystic artery was similarly dealt with. Then the gallbladder was removed from the liver bed using Harmonic nicci to control the small blood vessels as the dissection proceeded. Then the gallbladder was from the liver bed completely and delivered through the umbilical port using an Endopouch. The liver bed was coagulated with cautery to obtain satisfactory hemostasis. The trocars were pulled out from the abdominal cavity and the fascia at the umbilical incision was closed with interrupted 0 Ethibond. Subcutaneous tissues was closed with 3-0 chromic and injected a few cc of half percent Marcaine with epinephrine and the skin was closed with interrupted 4-0 nylon stitches at all the trocar sites. Dressing was applied with 2 x 2 and Tegaderm. Patient tolerated the procedure well and returned to recovery room in stable condition. Anesthesia GETA Pathology / specimen Other IVF Infused 400 Estimated Blood Loss 20 Surgeon Nikita Spencer MD Surgical Staff Operation Date: 03/08/25 10:15 Case Staff Anesthesiologist: Reyes Rodarte RN First Assistant: Graciela Delcid
--- NOTE | 2025-03-08 12:35 | SUR.PHASEII ---
1235: Pt. AAOx4, vitals stable, breathing unlabored, no complaint of pain or nausea, x4 dressing to ABD CDI, no active bleed noted, pt. tolerated sips of 7up well, pt. ambulated to wheelchair with minimal assist, no complications. Gave discharge instructions to the pt. and his ride, both verbalized understanding and had no further questions. Pt. left with all personal belongings.
== END 2025-03-08 12:35 | disposition home or self-care (01) ==
PROVIDERS: PCP Internal Medicine; Referring Provider Surgery; Visit Provider Surgery
PROC: 0FT44ZZ Resection of Gallbladder, Percutaneous Endoscopic Approach (ICD-10-PCS; CPT 47562; principal; 2025-03-08 10:00)
DX: K80.20 Calculus of gallbladder without cholecystitis without obstruction (principal); G47.30 Sleep apnea, unspecified; E66.01 Morbid (severe) obesity due to excess calories; I48.91 Unspecified atrial fibrillation; Z79.01 Long term (current) use of anticoagulants; I10 Essential (primary) hypertension; R07.9 Chest pain, unspecified; Z68.41 Body mass index [BMI] 40.0-44.9, adult
CPT/HCPCS: 47562; 36415; 80053; 85025; 85610; 85730; A4217; A4649; J0131; J1100; J2250; J2405; J2704; J3010; J3490; J7120; A9270

== ENCOUNTER → 2025-03-31 | Outpatient (BNVA) | payer OTHER, SELFPAY | END | disposition home or self-care (01) | PROVIDERS: PCP Internal Medicine; Referring Provider Internal Medicine; Visit Provider Urology | DX: N40.1 Benign prostatic hyperplasia with lower urinary tract symptoms (principal); R39.12 Poor urinary stream; I10 Essential (primary) hypertension; E78.00 Pure hypercholesterolemia, unspecified; I48.91 Unspecified atrial fibrillation; G47.30 Sleep apnea, unspecified; E66.9 Obesity, unspecified; K21.9 Gastro-esophageal reflux disease without esophagitis | CPT/HCPCS: 51741; 51798 ==

== ENCOUNTER → 2025-04-25 | Outpatient (BNVA) | payer OTHER, SELFPAY | END | disposition home or self-care (01) | PROVIDERS: PCP Internal Medicine; Referring Provider Internal Medicine; Visit Provider Urology | DX: R97.20 Elevated prostate specific antigen [PSA] (principal); I48.91 Unspecified atrial fibrillation; Z79.01 Long term (current) use of anticoagulants; Z98.890 Other specified postprocedural states; E66.9 Obesity, unspecified; Z68.38 Body mass index [BMI] 38.0-38.9, adult; I10 Essential (primary) hypertension | CPT/HCPCS: 81003; 99212; G0463 ==

== ENCOUNTER → 2025-06-03 | Outpatient (BNVA) | payer OTHER, SELFPAY | END | disposition home or self-care (01) | PROVIDERS: PCP Internal Medicine; Referring Provider Internal Medicine; Visit Provider Urology | DX: R97.20 Elevated prostate specific antigen [PSA] (principal); N40.1 Benign prostatic hyperplasia with lower urinary tract symptoms; K40.90 Unilateral inguinal hernia, without obstruction or gangrene, not specified as recurrent; I10 Essential (primary) hypertension; Z87.442 Personal history of urinary calculi | CPT/HCPCS: 99212; G0463 ==

== ENCOUNTER → 2025-06-28 | Outpatient (CLI) | payer OTHER, SELFPAY ==
[2025-06-28 10:28] LABS: Basophils # (Auto) 0.0 Thou/mm3 (0.0-0.2); Basophils % (Auto) 0 % (0-2.5); Eosinophils # (Auto) 0.3 Thou/mm3 (0.0-0.5); Eosinophils % (Auto) 3 % (0-10); Hematocrit 51.8 % (41.0-53.0); Hemoglobin 17.0 g/dL (13.5-16.0); Immature Granulocytes Auto 0.05 Thou/mm3 (0.00-0.00); Lymphocytes # (Auto) 2.2 Thou/mm3 (1.0-4.8); Lymphocytes % (Auto) 23 % (10-50); Mean Corpuscular HGB Conc 32.8 g/dl (31.0-37.0); Mean Corpuscular Hemoglobin 30.0 pg (25.0-35.0); Mean Corpuscular Volume 92 fL (80-100); Monocytes # (Auto) 0.6 Thou/mm3 (0.0-0.8); Monocytes % (Auto) 6 % (0-12); Neutrophils # (Auto) 6.5 Thou/mm3 (1.8-7.7); Neutrophils % (Auto) 67 % (37-80); Nucleated Red Blood Cell # 0.00 Thou/mm3 (0.00-0.00); Nucleated Red Blood Cell % 0 /100 WBC (0); Platelet Count 277 Thou/mm3 (140-440); RDW Standard Deviation 46.8 fL (35.1-43.9); Red Blood Count 5.66 Miln/mm3 (4.50-5.90); White Blood Count 9.7 Thou/mm3 (3.8-10.6)
[2025-06-28 10:48] LABS: Glucose Estimated Average 103 mg/dL (80-131); Hemoglobin A1C 5.2 % Hgb (4.8-6.0)
[2025-06-28 10:50] LABS: PSA Medicare Annual Scrn 4.23 ng/mL (0-4.00)
[2025-06-28 10:54] LABS: Alanine Aminotransferase 21 U/L (10-49); Albumin, Serum 4.6 gm/dL (3.4-4.8); Albumin/Globulin Ratio 1.4 (1.2-2.2); Alkaline Phosphatase 92 U/L (46-116); Anion Gap 9 (7-16); Aspartate Amino Transferase 23 U/L (0-34); BUN/Creatinine Ratio 13 Ratio (12-20); Bilirubin,Total 1.0 mg/dL (0.3-1.2); Blood Urea Nitrogen 17 mg/dL (9-23); Calcium 9.7 mg/dL (8.3-10.6); Calcium (Corrected) 9.7 mg/dL (8.5-10.1); Carbon Dioxide 30.9 mMol/L (20.0-31.0); Cardiac Risk Estimate 6.5 RATIO (4.0-6.7); Chloride 102 mMol/L (98-107); Cholesterol 235 mg/dL (132-200); Creatinine (Component) 1.3 mg/dL (0.6-1.3); Globulin 3.4 gm/dL (2.3-3.5); Glucose 100 mg/dL (74-106); HDL Cholesterol 36 mg/dL (40-60); LDL Cholesterol,Calculated 173 mg/dL (0-130); Osmolality,Calculated 284 (275-295); Potassium 3.9 mMol/L (3.4-5.1); Sodium 142 mMol/L (136-145); Total Protein 8.0 gm/dL (5.7-8.2); Triglycerides 130 mg/dL (30-150); eGFR 58 See Note
== END | disposition home or self-care (01) ==
LOC: COPL 09:41
PROVIDERS: PCP Internal Medicine; Referring Provider Internal Medicine; Visit Provider Internal Medicine
DX: E78.5 Hyperlipidemia, unspecified (principal); I10 Essential (primary) hypertension; F41.1 Generalized anxiety disorder; I48.91 Unspecified atrial fibrillation; J44.9 Chronic obstructive pulmonary disease, unspecified; G47.33 Obstructive sleep apnea (adult) (pediatric)
CPT/HCPCS: 36415; 80053; 80061; 83036; 84153; 85025; G0103

== ENCOUNTER 2025-07-03 09:42 | Emergency (ER) | payer OTHER, SELFPAY ==
--- NOTE | 2025-07-03 09:47 | EKG_ITS ---
[facility] Test Date: 2025-07-03 Pat Name: BERTA MEZA Department: Room: - Gender: Male [employer] Member: : [id number] Requested By: Carl Parker Order Number: [id number] Reading MD: Carl Parker Measurements Intervals [place] Rate: 72 P: ND: QRS: -28 QRSD: 102 T: 12 QT: 386 QTc: 424 Interpretive Statements ATRIAL FIBRILLATION WITH ABERRANT CONDUCTION OR VENTRICULAR PREMATURE COMPLEXES MODERATE VOLTAGE CRITERIA FOR LVH, CONSIDER NORMAL VARIANT [MEETS CRITERIA IN ONE OF: R(aVL), S(V1), R(V5), R(V5/V6)+S(V1)] POSSIBLE ANTERIOR MYOCARDIAL INFARCTION , PROBABLY OLD [30 ms Q WAVE IN V3/V4, OR R < 0.2 mV IN V4] INFERIOR MYOCARDIAL INFARCTION , PROBABLY OLD [40+ ms Q WAVE AND/OR ST/T ABNORMALITY IN II/aVF] Compared to ECG 01/26/2025 17:36:08 Ventricular premature complex(es) now present Aberrant conduction of supraventricular beat(s) now present Myocardial infarct finding still present /store/S0/[id number]/ecg/[id number].pdf
[2025-07-03 09:59] VITALS: BP 158/100; PULSE 72; RESP 20; TEMP 36.8; O2SAT 97; BMI 43.2
--- NOTE | 2025-07-03 10:46 | XR_ITS ---
EXAMINATION: PA chest single view TECHNIQUE: Upright PA chest single view Date and time: July 03, 2025, 10:46 a.m., comparison January 26, 2025 INDICATIONS: Chest pain today. FINDINGS: Mild prominence left ventricle Ectatic enlarged thoracic aorta. Moderate vascular congestion. No lobar pneumonia or pulmonary edema Moderate osteopenia IMPRESSION: Moderate vascular congestion No lobar pneumonia or pulmonary edema
--- NOTE | 2025-07-03 10:50 | PD.EDSOB ---
ED SOB =RME/HPI General Chief Complaint: Chest Pain Stated Complaint: CHEST PAIN, DIFFICULTY BREATHING X 2 DAYS Time Seen by Provider: 07/03/25 10:09 Arrival date/time: 07/03/25 09:42 This is a 74-year-old male that comes into the emergency room with complaints of chest pain and shortness of breath for the last 2 days. Patient has a history of high blood pressure recent cholecystectomy, And hyperlipidemia. Related Data Home Medications ?Medication ?Instructions ?Recorded ?Confirmed apixaban 5 mg tablet (Eliquis) 5 mg PO BID 03/07/25 06/03/25 Held on 03/08/25. Instructions: Resume on 03/11/25. chlorthalidone 25 mg tablet 25 mg PO DAILY 03/07/25 06/03/25 clonidine HCl 0.1 mg tablet 0.1 mg PO Q6H PRN hypertensive 03/07/25 06/03/25 emergency felodipine 10 mg tablet,extended 10 mg PO DAILY 03/07/25 06/03/25 release 24 hr omeprazole 40 mg capsule,delayed 40 mg PO QDAY 03/07/25 06/03/25 release tamsulosin 0.4 mg capsule (Flomax) 0.4 mg PO QDAY 03/07/25 06/03/25 telmisartan 80 mg tablet 80 mg PO DAILY 03/07/25 06/03/25 carvedilol 6.25 mg tablet 6.25 mg PO BID 04/25/25 06/03/25 Allergies Allergy/AdvReac Type Severity Reaction Status Date / Time Penicillins Allergy Mild RASH Verified 07/05/25 05:35 ERYTHROMYCIN Allergy Intermediate Swelling Uncoded 07/05/25 05:35 around lips/mouth Review of Systems Review of Systems Systems Reviewed: All systems reviewed, normal except as documented Past Medical History Past Medical History NEUROLOGIC: Negative Seizures CARDIAC: Positive Hypercholesterolemia and Hypertension; Negative Cardiac Disorders or Congestive Heart Failure RESPIRATORY: Positive Sleep Apnea; Negative Chronic Obstructive Pulmonary Disease (COPD) or Asthma GASTROINTESTINAL: Positive Gastrointestinal Disorders and Gastroesophageal Reflux Disease GENITOURINARY: Positive Genitourinary Disorders and Kidney Stones; Negative Renal Disease MUSCULOSKELETAL: Positive Carpal Tunnel Syndrome and Fractures ENT: Positive Ear Infection ENDOCRINE: Negative Diabetes Mellitus Type 1 or Diabetes Mellitus Type 2 HEMATOLOGIC: Negative Sickle Cell Disease OTHER HISTORY: Positive Chicken Pox, Measles and Mumps; Negative Blood Transfusions, Blood Transfusion Reaction or Anesthesia Reactions Family History FAMILY HISTORY: Positive Family Respiratory Disorders, Family Cardiac Disorders and Family Surgery Surgical History SURGICAL: Positive Ear Surgery Social History SMOKING STATUS: Never smoker SUBSTANCE USE: does not use ED Exam Narrative Physical exam: VITAL SIGNS: Reviewed. GENERAL APPEARANCE: Alert and interactive, follows commands, no acute distress, HEAD AND FACE: Non-traumatic. ENT: PERRL, conjuctiva pink and clear, eyelid no trauma, Mucous membrane moist. NECK: Supple, nontender, no nuchal rigidity. CHEST: No tenderness, no crepitus, no paradoxical movement, no retractions. LUNGS: Clear, well ventilated, symmetric, no rales, no wheezing, no rhonchi, no stridor, good breath sounds bilaterally. HEART: Regular rate, regular rhythm, no murmur, no gallops. ABDOMEN: Soft, nondistended, no guarding, nontender NEUROLOGICAL: Gross motor function intact sensory function intact, Appropriate for age. MUSCULOSKELETAL: low back nontender, full range of motion. EXTREMITIES: No redness no swelling no skin breakdown on bilateral foot and leg. Distal neurovascular status intact bilateral foot SKIN: Color pink, dry, no rash, no lacerations, no abrasions, no contusions. Course Quality Measures none Orders Category Date Time Status EKG (ED ONLY) *Do not use* NOW Care 07/03/25 09:47 Completed EKG (ED Only) Stat Exams 07/03/25 09:47 Draft XR chest 1V Stat Exams 07/03/25 10:46 Completed BNP [B-Type Natriuretic Peptide] Stat Lab 07/03/25 11:24 Completed CBC Stat Lab 07/03/25 11:24 Completed Comprehensive Metabolic Panel Stat Lab 07/03/25 11:24 Completed Lipase Stat Lab 07/03/25 11:24 Completed Troponin I Stat Lab 07/03/25 11:24 Completed Urinalysis Stat Lab 07/03/25 11:01 Completed Vital Signs Vital signs: Vital Signs Temperature 98.3 F 07/03/25 09:59 Pulse Rate 72 07/03/25 09:59 Respiratory Rate 20 07/03/25 09:59 Blood Pressure 158/100 H 07/03/25 09:59 Pulse Oximetry (%) 97 07/03/25 09:59 Oxygen Delivery Method Room Air 07/03/25 09:59 PROCEDURES: EKG Interpretation #1: Date of EK07/03/25 Time of EK:55 Rate: 72 Interpretation: Interpreted by me (Reading on EKG says atrial fibrillation but EKG appears to be sinus rhythm.) EKG Impression: Normal QRS and Normal intervals Shortness of Breath / Dyspnea MDM Narrative MDM Narrative:: Labs reviewed patient has a white count of 9.5 hemoglobin of 16.6 with a hematocrit of 50.4 platelet count 253 metabolic panel unremarkable for the most part AST and ALT within normal limits alk phos within normal limits BNP is 30 lipase is slightly elevated at 69. Urinalysis unremarkable. Troponin was negative. I spoke to patient at length. According to she thinks that patient used to be on diuretics however he does not remember being on diuretics. Patient states that he has a good relationship with Dr. Reynolds and he will make an appointment with him. Patient states he will call the office tomorrow to make an appointment with him as soon as possible. I offered to give patient a diuretic while he was in the emergency room but patient does not want a diuretic. I even told patient that it would be a good idea just to repeat the troponin in 4 hours and patient did not want to wait. Patient states that he feels like it could have just been gas pain because now his pain is completely resolved. Patient states that he thinks he might of put 2 scoops of coffee instant mix into his coffee and thinks that made him have the chest pain. Patient thinks that he was having more less gas pain versus chest pain. Patient's at bedside with patient and they state they want to go home. They do not want any more lab work. I did explain to patient that his lipase is slightly elevated at 69. I told him to make sure he gets this checked out with his primary doctor. LFTs otherwise unremarkable. I discussed case with and let him know that I was discharging patient home. chest x ray: FINDINGS: Mild prominence left ventricle Ectatic enlarged thoracic aorta. Moderate vascular congestion. No lobar pneumonia or pulmonary edema Moderate osteopenia IMPRESSION: Moderate vascular congestion No lobar pneumonia or pulmonary edema Patient data External records reviewed:: [facility] previous records Clinical information provided by:: patient Social determinants that could affect healthcare access:: none Patient has the following chronic illnesses:: see note How is presenting disease/condition affected by chronic disease/condition?: no chronic disease Evaluation data The following diagnostics were reviewed and interpreted by me:: lab results, radiology exam(s) and EKG tracing(s) Lab and/or radiology exams considered but not ordered:: repeat troponn Interpretation Summary: see note Medications / Prescriptions Medications or Prescriptions considered but not ordered:: none Medication administrations:: see note Consultations Consultation(s) initiated? (list below): No Diagnosis Shortness of Breath Differential Diagnosis: acute exacerbation of chronic obstructive airways disease, congestive heart failure and community acquired pneumonia Most likely diagnosis given after review of the tests above:: see note Admission Indicated Admission indicated?: not indicated Admission Request Was there a request for admission?: No Disposition Plan Disposition Plan: Discharge Discharge Attestation Discharge Attestation: The patient and all family members were given an opportunity to ask questions and understood the discharge instructions. Discharge instructions specifically effects, indications for sooner follow up or return to the emergency department, and the expected course of current diagnosis. Patient condition: Stable Discharge Plan Plan Patient Disposition: HOME (Self Care) Patient condition on transfer: Stable Prescriptions/Referrals Prescriptions/Med Rec: No Action carvedilol 6.25 mg tablet 6.25 mg PO BID Rx Instructions: must administer with a meal/food clonidine HCl 0.1 mg tablet 0.1 mg PO Q6H PRN (Reason: hypertensive emergency) Rx Instructions: B/P > 180/100 chlorthalidone 25 mg tablet 25 mg PO DAILY telmisartan 80 mg tablet 80 mg PO DAILY omeprazole 40 mg capsule,delayed release(DR/EC) 40 mg PO QDAY felodipine 10 mg tablet extended release 24 hr 10 mg PO DAILY tamsulosin [Flomax] 0.4 mg capsule 0.4 mg PO QDAY Eliquis 5 mg tablet 5 mg PO BID Referrals: Driss Guillaume [Primary Care Provider] - In 1 week Problem List Clinical Impression: Chest pain, Elevated lipase Patient/Caregiver Discharge Instructions Discharge Activity: activity as tolerated Education Materials: ED Chest Pain, Uncertain Cause Additional Instructions: Please call and make an appointment with Dr. Reynolds rn progressive care unit. come back to the emergency room if symptoms change or worsen. Follow-up with primary provider in 1 to 2 days. Print Language: Sami Stand Alone Forms: [employer] Award Info., Patient Portal Info Letter PA/GAMES DEALER Supervising Physician PA/GAMES DEALER Supervising Physician: enid
[2025-07-03 11:21] LABS: Collection Type, Urine Voided; RBC,Urine 0 /hpf (0-3); Squamous Epithelial Cell,Urine 0 /hpf (0-5)
[2025-07-03 11:37] LABS: Bilirubin,Urine Negative (Negative); Blood,Urine Negative (Negative); Clarity,Urine Clear (Clear/Hazy); Color,Urine Lt-Yellow (Lt Yel-Yel); Glucose, Urine Negative (Negative); Ketones,Urine Negative (Negative); Leukocyte Esterase,Urine Negative (Negative); Nitrite,Urine Negative (Negative); PH,Urine 6.5 (5.0-7.0); Protein,Urine Negative (Neg - Trace); Specific Gravity,Urine 1.009 (1.001-1.035); Urobilinogen,Urine Negative mg/dL (0.0-1.0); WBC,Urine < 1 /hpf (0-5)
[2025-07-03 11:49] LABS: Basophils # (Auto) 0.0 Thou/mm3 (0.0-0.2); Basophils % (Auto) 0 % (0-2.5); Eosinophils # (Auto) 0.1 Thou/mm3 (0.0-0.5); Eosinophils % (Auto) 1 % (0-10); Hematocrit 50.4 % (41.0-53.0); Hemoglobin 16.6 g/dL (13.5-16.0); Immature Granulocytes Auto 0.03 Thou/mm3 (0.00-0.00); Lymphocytes # (Auto) 1.8 Thou/mm3 (1.0-4.8); Lymphocytes % (Auto) 20 % (10-50); Mean Corpuscular HGB Conc 32.9 g/dl (31.0-37.0); Mean Corpuscular Hemoglobin 30.0 pg (25.0-35.0); Mean Corpuscular Volume 91 fL (80-100); Monocytes # (Auto) 0.5 Thou/mm3 (0.0-0.8); Monocytes % (Auto) 6 % (0-12); Neutrophils # (Auto) 6.9 Thou/mm3 (1.8-7.7); Neutrophils % (Auto) 73 % (37-80); Nucleated Red Blood Cell # 0.00 Thou/mm3 (0.00-0.00); Nucleated Red Blood Cell % 0 /100 WBC (0); Platelet Count 253 Thou/mm3 (140-440); RDW Standard Deviation 45.8 fL (35.1-43.9); Red Blood Count 5.54 Miln/mm3 (4.50-5.90); White Blood Count 9.5 Thou/mm3 (3.8-10.6)
[2025-07-03 12:06] LABS: B-Type Natriuretic Peptide 30 pg/mL (0-100)
[2025-07-03 12:07] LABS: Alanine Aminotransferase 21 U/L (10-49); Albumin, Serum 4.2 gm/dL (3.4-4.8); Albumin/Globulin Ratio 1.1 (1.2-2.2); Alkaline Phosphatase 90 U/L (46-116); Anion Gap 10 (7-16); Aspartate Amino Transferase 22 U/L (0-34); BUN/Creatinine Ratio 12 Ratio (12-20); Bilirubin,Total 1.1 mg/dL (0.3-1.2); Blood Urea Nitrogen 14 mg/dL (9-23); Calcium 9.9 mg/dL (8.3-10.6); Calcium (Corrected) 9.9 mg/dL (8.5-10.1); Carbon Dioxide 28.0 mMol/L (20.0-31.0); Chloride 103 mMol/L (98-107); Creatinine (Component) 1.2 mg/dL (0.6-1.3); Estimated Creatinine Clearance 66.2 mL/min (>60); Globulin 3.7 gm/dL (2.3-3.5); Glucose 91 mg/dL (74-106); Lipase 69 U/L (12-53); Osmolality,Calculated 281 (275-295); Potassium 4.0 mMol/L (3.4-5.1); Sodium 141 mMol/L (136-145); Total Protein 7.9 gm/dL (5.7-8.2); eGFR > 60 See Note
[2025-07-03 14:10] LABS: Troponin I < 0.020 ng/mL (0.0-0.045)
== END 2025-07-03 15:36 | disposition home or self-care (01) ==
PROVIDERS: Nurse Practitioner Family; Emergency Provider Emergency Medicine; PCP Internal Medicine
DX: R74.8 Abnormal levels of other serum enzymes (principal); R07.9 Chest pain, unspecified; R09.89 Other specified symptoms and signs involving the circulatory and respiratory systems; I48.91 Unspecified atrial fibrillation; I49.3 Ventricular premature depolarization; I10 Essential (primary) hypertension; E78.00 Pure hypercholesterolemia, unspecified
CPT/HCPCS: 36415; 71045; 80053; 81001; 83690; 83880; 84484; 85025; 93005; 99283

== ENCOUNTER 2025-07-05 05:34 | Emergency (ER) | payer OTHER, SELFPAY ==
[2025-07-05] VITALS (9 sets, daily range): BP systolic 132–149; BP diastolic 79–97; PULSE 52–62; RESP 12–89; TEMP 36.4–36.6; O2SAT 94–96; BMI 43.2
--- NOTE | 2025-07-05 05:57 | XR_ITS ---
EXAMINATION: PA chest single view TECHNIQUE: Upright PA chest single view Date and time: July 05, 2025, 0603 hours, comparison July 03, 2025 INDICATIONS: Chest pain shortness of breath beginning this morning FINDINGS: Normal heart size Ectatic thoracic aorta. Subtle opacity at both lung bases consistent with early pneumonia No reed pulmonary edema Mild osteopenia Right axillary surgical clips IMPRESSION:: Early bibasilar pneumonia
--- NOTE | 2025-07-05 05:58 | PD.EDRME ---
Rapid Medical Screening Exam E Arrival date/time: 07/05/25 05:34 This is a case of 75-year-old male who came in in the emergency room due to chest pain and shortness of breath since midnight worsening of the symptoms this patient decided to sought consult here in the emergency room Chief Complaint: Chest Pain Vital signs: Vital Signs Temperature 97.6 F 07/05/25 05:45 Pulse Rate 56 L 07/05/25 05:45 Respiratory Rate 19 07/05/25 05:45 Blood Pressure 139/79 H 07/05/25 05:45 Pulse Oximetry (%) 96 07/05/25 05:45 Oxygen Delivery Method Room Air 07/05/25 05:45 Exam: Clear breath sound normal rate regular rhythm no murmur Clinical Impression: Chest pain
[2025-07-05 06:36] LABS: Basophils # (Auto) 0.1 Thou/mm3 (0.0-0.2); Basophils % (Auto) 1 % (0-2.5); Eosinophils # (Auto) 0.2 Thou/mm3 (0.0-0.5); Eosinophils % (Auto) 2 % (0-10); Hematocrit 48.9 % (41.0-53.0); Hemoglobin 16.1 g/dL (13.5-16.0); Immature Granulocytes Auto 0.03 Thou/mm3 (0.00-0.00); Lymphocytes # (Auto) 2.0 Thou/mm3 (1.0-4.8); Lymphocytes % (Auto) 19 % (10-50); Mean Corpuscular HGB Conc 32.9 g/dl (31.0-37.0); Mean Corpuscular Hemoglobin 30.1 pg (25.0-35.0); Mean Corpuscular Volume 91 fL (80-100); Monocytes # (Auto) 0.5 Thou/mm3 (0.0-0.8); Monocytes % (Auto) 5 % (0-12); Neutrophils # (Auto) 7.5 Thou/mm3 (1.8-7.7); Neutrophils % (Auto) 73 % (37-80); Nucleated Red Blood Cell # 0.00 Thou/mm3 (0.00-0.00); Nucleated Red Blood Cell % 0 /100 WBC (0); Platelet Count 206 Thou/mm3 (140-440); RDW Standard Deviation 46.1 fL (35.1-43.9); Red Blood Count 5.35 Miln/mm3 (4.50-5.90); White Blood Count 10.4 Thou/mm3 (3.8-10.6)
[2025-07-05 06:57] LABS: B-Type Natriuretic Peptide 25 pg/mL (0-100)
[2025-07-05 07:01] LABS: Alanine Aminotransferase 18 U/L (10-49); Albumin, Serum 4.4 gm/dL (3.4-4.8); Albumin/Globulin Ratio 1.3 (1.2-2.2); Alkaline Phosphatase 85 U/L (46-116); Anion Gap 13 (7-16); Aspartate Amino Transferase 21 U/L (0-34); BUN/Creatinine Ratio 12 Ratio (12-20); Bilirubin,Total 0.6 mg/dL (0.3-1.2); Blood Urea Nitrogen 14 mg/dL (9-23); Calcium 9.1 mg/dL (8.3-10.6); Calcium (Corrected) 9.1 mg/dL (8.5-10.1); Carbon Dioxide 26.3 mMol/L (20.0-31.0); Chloride 103 mMol/L (98-107); Creatinine (Component) 1.2 mg/dL (0.6-1.3); Estimated Creatinine Clearance 66.2 mL/min (>60); Globulin 3.3 gm/dL (2.3-3.5); Glucose 118 mg/dL (74-106); Osmolality,Calculated 284 (275-295); Potassium 3.5 mMol/L (3.4-5.1); Sodium 142 mMol/L (136-145); Total Protein 7.7 gm/dL (5.7-8.2); Troponin I < 0.020 ng/mL (0.0-0.045); eGFR > 60 See Note
[2025-07-05] MEDS: FUROSEMIDE INJ 10 MG/ML 4ML VIAL 40 MG IVP (07:54)
[2025-07-05] MEDS: ALBUTEROL RT 2.5 MG/3 ML NEBU INH (08:11)
[2025-07-05 10:00] LABS: Collection Type, Urine Voided; RBC,Urine 0 /hpf (0-3); Squamous Epithelial Cell,Urine 0 /hpf (0-5); WBC,Urine 0 /hpf (0-5)
[2025-07-05 10:07] LABS: Bilirubin,Urine Negative (Negative); Blood,Urine Negative (Negative); Clarity,Urine Clear (Clear/Hazy); Color,Urine Colorless (Lt Yel-Yel); Glucose, Urine Negative (Negative); Ketones,Urine Negative (Negative); Leukocyte Esterase,Urine Negative (Negative); Nitrite,Urine Negative (Negative); PH,Urine 6.5 (5.0-7.0); Protein,Urine Negative (Neg - Trace); Specific Gravity,Urine 1.008 (1.001-1.035); Urobilinogen,Urine Negative mg/dL (0.0-1.0)
--- NOTE | 2025-07-05 10:57 | PD.EDCHEST ---
ED Chest Pain RME/HPI General Chief Complaint: Chest Pain Stated Complaint: CHEST PAIN AND SOB Time Seen by Provider: 07/05/25 06:48 Arrival date/time: 07/05/25 05:34 Limitations: no limitations RME / HPI RME / HPI narrative: 07/05/25 05:34 This is a case of 75-year-old male who came in in the emergency room due to chest pain and shortness of breath since midnight worsening of the symptoms this patient decided to sought consult here in the emergency room DR. LANDA MAIN ED EVALUATION: 74 year old male with history of atrial fibrillation on Eliquis, hypertension, hyperlipidemia presents to the ED for evaluation of shortness of breath beginning yesterday and worsening last night. Described feeling he is not getting enough air that was not improved with use of CPAP or administering a breathing treatment last night. Accompanied by a dull aching chest pain, located across his chest, rating as moderate in severity. Denies fevers, chills, sweats, cough, abdominal pain, n/v, or other associated symptoms. Exam: Clear breath sound normal rate regular rhythm no murmur Impression: Chest pain Related Data Home Medications ?Medication ?Instructions ?Recorded ?Confirmed apixaban 5 mg tablet (Eliquis) 5 mg PO BID 03/07/25 06/03/25 Held on 03/08/25. Instructions: Resume on 03/11/25. chlorthalidone 25 mg tablet 25 mg PO DAILY 03/07/25 06/03/25 clonidine HCl 0.1 mg tablet 0.1 mg PO Q6H PRN hypertensive 03/07/25 06/03/25 emergency felodipine 10 mg tablet,extended 10 mg PO DAILY 03/07/25 06/03/25 release 24 hr omeprazole 40 mg capsule,delayed 40 mg PO QDAY 03/07/25 06/03/25 release tamsulosin 0.4 mg capsule (Flomax) 0.4 mg PO QDAY 03/07/25 06/03/25 telmisartan 80 mg tablet 80 mg PO DAILY 03/07/25 06/03/25 carvedilol 6.25 mg tablet 6.25 mg PO BID 04/25/25 06/03/25 Previous Rx's ?Medication ?Instructions ?Recorded levofloxacin 500 mg tablet 500 mg PO Q24H 10 days #10 tabs 07/05/25 Allergies Allergy/AdvReac Type Severity Reaction Status Date / Time Penicillins Allergy Mild RASH Verified 07/05/25 05:35 ERYTHROMYCIN Allergy Intermediate Swelling Uncoded 07/05/25 05:35 around lips/mouth Review of Systems Review of Systems Systems Reviewed: All systems reviewed, normal except as documented Past Medical History Past Medical History CARDIAC: Positive Atrial Fibrillation, Hypercholesterolemia and Hypertension RESPIRATORY: Positive Sleep Apnea GASTROINTESTINAL: Positive Gastrointestinal Disorders, Gall Bladder Disease, Gastroesophageal Reflux Disease and Obesity GENITOURINARY: Positive Genitourinary Disorders, Kidney Stones and Benign Prostatic Hyperplasia MUSCULOSKELETAL: Positive Carpal Tunnel Syndrome and Fractures ENT: Positive Ear Infection OTHER HISTORY: Positive Hospitalization (surgery), Chicken Pox, Measles and Mumps Family History FAMILY HISTORY: Positive Family Respiratory Disorders, Family Cardiac Disorders and Family Surgery Surgical History SURGICAL: Positive Cardiac Surgery (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, thoracotomy right), Ear Surgery and Abdominal Surgery Social History SMOKING STATUS: Never smoker SUBSTANCE USE: does not use ED Exam General Limitations: Present no limitations General appearance: Present alert and in no apparent distress Head Head exam: Present atraumatic, normocephalic and normal inspection Eye Eye exam: Present normal appearance, PERRL and EOMI ENT ENT exam: Present normal exam, normal oropharynx and mucous membranes moist Neck Neck exam: Present normal inspection, full ROM and trachea midline Chest Chest inspection: Present normal inspection and symmetric chest wall rise Respiratory Respiratory exam: Present normal lung sounds bilaterally and other (Dimished breath sounds in both bases ) Cardiovascular Cardiovascular exam: Present regular rate, normal rhythm and normal heart sounds Abdominal Exam Abdominal exam: Present soft and normal bowel sounds Extremities Exam Extremities exam: Present normal inspection, full ROM and other (1+ pretibial edema to bilateral lower extremities ) Back Exam Back exam: Present normal inspection and full ROM Neurological Exam Neurological exam: Present alert, oriented X3 and CN II-XII intact Psychiatric Psychiatric exam: Present normal affect and normal mood Skin Skin exam: Present warm, dry, intact and normal color Course Course Course Narrative: chest xray ordered to help determine etiology of chest pain and shortness of breath. Quality Measures none Orders Category Date Time Status Talent Acquisition Project Manager NOW Care 07/05/25 06:50 Completed Continuous Pulse Oximetry NOW Care 07/05/25 06:50 Completed EKG (ED ONLY) *Do not use* NOW Care 07/05/25 05:38 Completed EKG (ED ONLY) *Do not use* NOW Care 07/05/25 05:57 Completed Insert IV NOW Care 07/05/25 06:50 Completed EKG (ED Only) Stat Exams 07/05/25 05:38 Ordered EKG (ED Only) Stat Exams 07/05/25 05:57 Ordered XR chest 1V Stat Exams 07/05/25 05:57 Completed BNP [B-Type Natriuretic Peptide] Stat Lab 07/05/25 06:16 Completed CBC Stat Lab 07/05/25 06:16 Completed CMP [Comprehensive Metabolic Panel] Stat Lab 07/05/25 06:16 Completed Troponin I Stat Lab 07/05/25 06:16 Completed Urinalysis Stat Lab 07/05/25 09:30 Completed ALBUTEROL RT 3ml [Proventil Rt 3ml] Med 07/05/25 07:24 Discontinued 2.5 mg INH X1 ONE Furosemide Inj [Lasix Inj] Med 07/05/25 07:24 Discontinued 40 mg IVP X1 ONE LORazepam [Ativan] Med 07/05/25 07:24 Discontinued 0.5 mg PO X1 ONE Sodium Chloride 0.9% 1000 ml [Ns] 1,000 ml Med 07/05/25 06:50 Discontinued IV 50 mls/hr levoFLOXacin [Levaquin] Med 07/05/25 11:19 Discontinued 500 mg PO X1 ONE Oxygen Delivery NOW RT 07/05/25 06:50 Completed Vital Signs Vital signs: Vital Signs Temperature 97.6 F 07/05/25 05:45 Pulse Rate 56 L 07/05/25 05:45 Respiratory Rate 19 07/05/25 05:45 Blood Pressure 139/79 H 07/05/25 05:45 Pulse Oximetry (%) 96 07/05/25 05:45 Oxygen Delivery Method Room Air 07/05/25 05:45 Pulse ox is 96% on room air which is adequate. Chest Pain MDM Narrative MDM Narrative:: IMary Jo, am scribing for and in the presence of Dr. Landa. 74 year old male with history of atrial fibrillation on Eliquis, hypertension, hyperlipidemia presents to the ED for evaluation of shortness of breath beginning yesterday and worsening last night. Described feeling he is not getting enough air that was not improved with use of CPAP or administering a breathing treatment last night. Accompanied by a dull aching chest pain, located across his chest, rating as moderate in severity. On examination, the patient has mild diminished breath sounds bilateral bases. Labs were unremarkable. Chest xray significant for early bibasilar pneumonia. Through ED course, the patient received Ativan, Lasix, Albuterol, and Levofloxacin. On reassessment, the patient reported feeling improved. We reviewed all the results, analysis, and treatment plans. Patient is amenable to discharge. Strict return precautions were outlined. Patient data External records reviewed:: [facility] previous records Clinical information provided by:: patient Social determinants that could affect healthcare access:: none Patient has the following chronic illnesses:: atrial fibrillation on Eliquis, hypertension, hyperlipidemia How is presenting disease/condition affected by chronic disease/condition?: exacerbated by Evaluation data The following diagnostics were reviewed and interpreted by me:: lab results, radiology exam(s) and EKG tracing(s) (EKG @ 05:44am, interpreted by me, sinus bradycardia, rate 58, no STEMI. ) Lab and/or radiology exams considered but not ordered:: None Interpretation Summary: Ordering Physician: Ruchi Contreras Date of Service: 07/05/25 Procedure(s): XR chest 1V Accession Number(s): [id number] cc: Herbert Stauffer MD; Ruchi Contreras~ EXAMINATION: PA chest single view TECHNIQUE: Upright PA chest single view Date and time: July 05, 2025, 0603 hours, comparison July 03, 2025 INDICATIONS: Chest pain shortness of breath beginning this morning FINDINGS: Normal heart size Ectatic thoracic aorta. Subtle opacity at both lung bases consistent with early pneumonia No reed pulmonary edema Mild osteopenia Right axillary surgical clips IMPRESSION:: Early bibasilar pneumonia Dictated By: Herbert Stauffer MD Signed By: <Electronically signed by Herbert Stauffer MD in OV> 07/05/25 0748 Medications / Prescriptions Medications or Prescriptions considered but not ordered:: None Medication administrations:: Medication Administration History Discontinued Medications Albuterol (Albuterol Rt 2.5 Mg/3 Ml Nebu) 2.5 mg INH X1 ONE Stop: 07/05/25 07:25 Last Admin: 07/05/25 08:11 Dose: 2.5 mg Documented By: AA Furosemide (Furosemide Inj 10 Mg/Ml 4ml Vial) 40 mg IVP X1 ONE Stop: 07/05/25 07:25 Last Admin: 07/05/25 07:54 Dose: 40 mg Documented By: CARLOS Sodium Chloride (Ns) 1,000 mls @ 50 mls/hr IV .Q20H ONE Stop: 07/06/25 02:49 Last Admin: 07/05/25 07:58 Dose: Not Given Documented By: CARLOS Non-Admin Reason: Discontinued Levofloxacin (Levofloxacin 250 Mg Tablet) 500 mg PO X1 ONE Stop: 07/05/25 11:20 Last Admin: 07/05/25 11:26 Dose: 500 mg Documented By: CARLOS Lorazepam (Lorazepam 0.5 Mg Tablet) 0.5 mg PO X1 ONE Stop: 07/05/25 07:25 Last Admin: 07/05/25 07:53 Dose: 0.5 mg Documented By: CARLOS See above Consultations Consultation(s) initiated? (list below): No Diagnosis Most likely diagnosis given after review of the tests above:: Pneumonia Admission Indicated Admission indicated?: not indicated Explain why admission is indicated or not indicated:: With no condition needing emergent intervention, there was no indication for admission. Admission Request Was there a request for admission?: No Disposition Plan Disposition Plan: Discharge Discharge Attestation Discharge Attestation: The patient and all family members were given an opportunity to ask questions and understood the discharge instructions. Discharge instructions specifically effects, indications for sooner follow up or return to the emergency department, and the expected course of current diagnosis. Patient condition: Stable Discharge Plan Plan Patient Disposition: HOME (Self Care) Patient condition on transfer: Stable Prescriptions/Referrals Prescriptions/Med Rec: New levofloxacin 500 mg tablet 500 mg PO Q24H 10 Days Qty: 10 0RF No Action carvedilol 6.25 mg tablet 6.25 mg PO BID Rx Instructions: must administer with a meal/food clonidine HCl 0.1 mg tablet 0.1 mg PO Q6H PRN (Reason: hypertensive emergency) Rx Instructions: B/P > 180/100 chlorthalidone 25 mg tablet 25 mg PO DAILY telmisartan 80 mg tablet 80 mg PO DAILY omeprazole 40 mg capsule,delayed release(DR/EC) 40 mg PO QDAY felodipine 10 mg tablet extended release 24 hr 10 mg PO DAILY tamsulosin [Flomax] 0.4 mg capsule 0.4 mg PO QDAY Eliquis 5 mg tablet 5 mg PO BID Referrals: Driss Guillaume [Primary Care Provider] - In 1 week Problem List Clinical Impression: Pneumonia Patient/Caregiver Discharge Instructions Discharge Activity: activity as tolerated Education Materials: ED Pneumonia (Adult) Additional Instructions: Take your antibiotic as prescribed. Continue your home nebulizer and CPAP machine at home. Follow-up with your doctor in 2 to 3 days. Return to the ER for any concerns Print Language: Greek Stand Alone Forms: [employer] Award Info., Patient Portal Info Letter
== END 2025-07-05 11:32 | disposition home or self-care (01) ==
PROVIDERS: Nurse Practitioner Family; Emergency Provider Family Medicine; PCP Internal Medicine
DX: J18.9 Pneumonia, unspecified organism (principal); I10 Essential (primary) hypertension; E78.5 Hyperlipidemia, unspecified; I48.91 Unspecified atrial fibrillation; Z79.01 Long term (current) use of anticoagulants
CPT/HCPCS: 36415; 71045; 80053; 81001; 83880; 84484; 85025; 93005; 94640; 96374; 99285; J1938; A9270